=== PATIENT | female | born 1985 | race Caucasian/White ===

== ENCOUNTER 2019-03-12 12:11 | Emergency (ER) | payer SELFPAY ==
[~2019-03-12] VITALS: Ht 162.6 cm; Wt 69.8 kg
[2019-03-12] MEDS ORDERED: ZOFRAN4 MG PO (14:06)
[2019-03-12] MEDS ORDERED: VENTOLIN HFA18 GM INH (14:06)
[2019-03-12] MEDS ORDERED: BACTRIM DS TAB1 EACH PO (14:06)
--- NOTE | 2019-03-12 19:54 | EKG ---
[facility] [address] [place] [place] [address] Signed Normal sinus rhythm Septal infarct , age undetermined Abnormal ECG No previous ECGs available Confirmed by KARSTEN GARAY MD ([id number] on 03/12/2019 7:54:53 PM Electronically Signed By: KARSTEN GARAY MD 03/12/191953 PATIENT NAME: TYREE STROUD Electrocardiogram DATE OF : 85 PHYSICIAN: KARSTEN GARAY MD REPORT #: [id number] REPORT IS CONFIDENTIAL AND NOT TO BE RELEASED WITHOUT AUTHORIZATION
== END 2019-03-12 14:38 | disposition home or self-care (01) ==
LOC: ED 12:11
DX: F41.0 Panic disorder [episodic paroxysmal anxiety] (principal); N39.0 Urinary tract infection, site not specified; Z87.891 Personal history of nicotine dependence; Z88.0 Allergy status to penicillin; Z88.5 Allergy status to narcotic agent
CPT/HCPCS: 71046; 80053; 81001; 83690; 84443; 84703; 85025; 93005; 93010; 96374; 99285-25; J1885

== ENCOUNTER 2020-02-16 21:03 | Emergency (ER) | payer OTHER ==
[~2020-02-16] VITALS: Ht 162.6 cm; Wt 56.7 kg
[~2020-02-16 21:03] MED LIST: BACTRIM DS TAB1 EACH PO; VENTOLIN HFA18 GM INH; ZOFRAN4 MG PO
== END 2020-02-16 22:14 | disposition home or self-care (01) ==
LOC: ED 21:03
DX: J06.9 Acute upper respiratory infection, unspecified (principal); Z88.0 Allergy status to penicillin; Z88.5 Allergy status to narcotic agent
CPT/HCPCS: 71046; 99283-25

== ENCOUNTER 2020-08-31 16:49 | Emergency (ER) | payer SELFPAY ==
[~2020-08-31] VITALS: Ht 162.6 cm; Wt 57.1 kg
--- OUTSIDE RECORDS SUMMARY | ~2020-08-31 | XMS | Encounter Summary ---
Demographics + + + | Address | [address] | | | [place] [address] | + + + | Home Phone | | + + + | Preferred Language | Unknown | + + + | Marital Status | Single | + + + | Cheondoism Affiliation | NON | + + + | Race | White | + + + | Ethnic Group | or | + + + Author + + + | Author | [facility] | + + + | Organization | [facility] | + + + | Address | Unknown | + + + | Phone | Unavailable | + + + Support + + +---------+ + | Name | Relationship | Address | Phone | + + +---------+ + | Sophie Ramirez | ECON | Unknown | | + + +---------+ + Care Team Providers + +------+ + | Care Wireless Sales Associate Name | Role | Phone | + +------+ + | No Pcp Per Patient | PCP | Unavailable | + +------+ + Reason for Visit +---------+ + | Reason | Comments | +---------+ + | Abscess | Breast | +---------+ + AUTH/CERT +--------+--------+ + + + + | Status | Reason | Specialty | Diagnoses / | Referred By | Referred To | | | | | Procedures | Contact | Contact | +--------+--------+ + + + + | | | | | | | +--------+--------+ + + + + Encounter Details +--------+ + + + + | Date | Type | Department | Care Team | Description | +--------+ + + + + | 08/30/ | Hospital | [facility] [address] | Brigitte Lantigua | | | 2012 - | Encounter | Yariel Galvan MD [address] | | | | | [place], [place] | [address] | | | 09/02/ | | [address] | [place], [place] | | | 2012 | | [phone] | [address] | | | | | | [phone] | | | | | | | | | | | | Monica Lam MD | | | | | | [address] | | | | | | [place], | | | | | | [place] [address] | | | | | | [phone] | | | | | | | | +--------+ + + + + Social History + + + +--------+ + | Tobacco Use | Types | Packs/Day | Years | Date | | | | | Used | | + + + +--------+ + | Former Smoker | Cigarettes | | 1 | Quit: 08/30/2012 | + + + +--------+ + + + +---------+ + | Alcohol Use | Drinks/Week | oz/Week | Comments | + + +---------+ + | No | 0 Standard drinks | 0.0 | | | | or equivalent | | | + + +---------+ + + + + | Sex Assigned at | Date Recorded | | | | + + + | Not on file | | + + + documented as of this encounter Last Filed Vital Signs + + + + + | Vital Sign | Reading | Time Taken | Comments | + + + + + | Blood Pressure | 137/85 | 09/02/2013 8:21 AM | | | | | PDT | | + + + + + | Pulse | 96 | 09/02/2013 8:21 AM | | | | | PDT | | + + + + + | Temperature | 36.3 C (97.3 F) | 09/02/2013 8:21 AM | | | | | PDT | | + + + + + | Respiratory Rate | 14 | 09/02/2013 8:21 AM | | | | | PDT | | + + + + + | Oxygen Saturation | 99% | 09/02/2013 8:21 AM | | | | | PDT | | + + + + + | Inhaled Oxygen | - | - | | | Concentration | | | | + + + + + | Weight | 50 kg (110 lb 3.7 | 08/31/2013 1:21 AM | | | | oz) | PDT | | + + + + + | Height | 165.1 cm (5' 5") | 08/31/2013 1:21 AM | | | | | PDT | | + + + + + | Body Mass Index | 18.34 | 08/31/2013 1:21 AM | | | | | PDT | | + + + + + documented in this encounter Discharge Summaries Serena Mohan NP - 09/02/2013 10:08 AM PDTFormatting of this note might be different f rom the original. [facility] DEPARTMENT OF SURGERY EMERGENCY GENERAL SURGERY Division of Trauma and Critical Care INPATIENT PROVIDER DISCHARGE SUMMARY Note Date: 09/02/2013 Admission Date: 08/30/2013 LACIE RAMIREZ, Discharge Date: 02 Sep 2013 PCP: No Pcp Per PATIENT Attending Physician: Brigitte Lantigua MD Author: SERENA MOHAN NP Diagnoses Principal Final Diagnosis: Left breast abscess / cellulitis Additional Diagnoses:Patient UTI (lower urinary tract infection) Anemia Procedures 08/31/13 I&D left breast involving muscle. Vitals on discharge: Ht 1.651 m (5' 5"), Wt 50 kg (110 lb 3.7 oz), BP 139/78, Pulse 100, Te mperature 36.5 C (97.7 F), RR 14, SpO2 100%, BMI 18.34 kg/(m^2). Brief Hospital Course Lacie Ding is a 28 y/o female transferred from [facility] with co ncerns of left breast currently treated for UTI. She was admitted and started on IV antibio tics. She was taken to the operating room for incision and debridement of abscess involving abscess to the muscle wall. She tolerated procedure without complication. The initial cult ure grew staph She has an open wound to the left chest wall She is discharged on bactrim and will follow up with with Dr. Luis Fernando Evans September 06 at 10:45. The office will need to obtain the final culture results at that time to review . PROCEDURES: 08/31/13 Incision and drainage left breast abscess Findings: Large left breast abscess, approximately 8 cm round, replacing left breast. Ultra sound revealed extension of abscess to muscle wall. Aspirated 80 mL of thick, green tinged, opaque, and purulent material from left breast. Incised with additional large amount of puru lent material from abscess cavity - approximately additional 100 mL. Outstanding labs/pathology/studies: Culture sensitivity pending at [facility] Medications: Current Discharge Medication List START taking these medications Details acetaminophen 325 mg Oral tablet Take 1-2 tablets by mouth every four hours as needed. loratadine 10 mg Oral tablet Take 1 tablet by mouth as needed (itching). Indications: URTIC ARIA Qty: 10 tablet, Refills: 0 oxyCODONE, immediate release, 5 mg Oral tablet Take 2-4 tablets by mouth every four hours a s needed for severe pain. Lock pain medication away, keeping away from children. Qty: 140 tablet, Refills: 0 trimethoprim-sulfamethoxazole (BACTRIM DS) 160-800 mg Oral tablet Take 2 tablets by mouth t wo times daily. Qty: 14 tablet, Refills: 0 Schedule the following appointment(s) when you get home Follow up with LUIS FERNANDO THORNTON MD On 09/06/2013. (10:45 a.m.) Contact information [facility] [address] [facility] [address] [place] [address] Destination: Destination: Home Condition on Discharge Good Discharging Provider: SERENA MOHAN NP Attending Physician: Brigitte Lantigua MD documented in this encounter Medications at Time of Discharge + + + +---------+ + + | Medication | Sig | Dispensed | Refills | Start | End Date | | | | | | Date | | + + + +---------+ + + | acetaminophen 325 | Take 1-2 tablets by | | 0 | 10/20 | | | mg Oral tablet | mouth every four | | | 13 | | | | hours as needed. | | | | | + + + +---------+ + + | loratadine 10 mg | Take 1 tablet by | 10 | 0 | 09/02/20 | | | Oral | mouth as needed | tablet | | 13 | | | tabletIndications: | (itching). | | | | | | urticaria | Indications: | | | | | | | URTICARIA | | | | | + + + +---------+ + + | oxyCODONE, | Take 2-4 tablets by | 140 | 0 | 09/02/20 | | | immediate release, 5 | mouth every four | tablet | | 13 | | | mg Oral tablet | hours as needed for | | | | | | | severe pain. Lock | | | | | | | pain medication | | | | | | | away, keeping away | | | | | | | from children. | | | | | + + + +---------+ + + | | Take 2 tablets by | 14 | 0 | 09/02/20 | | | trimethoprim-sulfame | mouth two times | tablet | | 13 | | | thoxazole (BACTRIM | daily. | | | | | | DS) 160-800 mg Oral | | | | | | | tablet | | | | | | + + + +---------+ + + documented as of this encounter Progress Notes Nichole Seymour, Marina - 09/02/2013 7:55 PM PDT [facility] Emergency General Surgery Inpatient Progress Note Hospital Day #3 Author: MARINA ANDERSEN MD Attending: Brigitte Lantigua MD Interval History: --Tolerating dressing changes, not interacting with nurse to learn to pack wound on her own . Subjective: --Pain: Well controlled on PO pain meds. --Nausea and vomiting: None --Diet: Regular --Flatus:+ --Ambulation: OOB without assist Objective: Last Vitals: BP 137/85 | Pulse 96 | Temp 36.3 C (97.3 F) | RR 14 | Ht 1.651 m (5' 5") | Wt 50 kg (110 lb 3.7 oz) | SpO2 99% | BMI 18.34 kg/(m^2) 24 Hour Vital Min/Max: Systolic (24hrs), Av mmHg, Min:123 mmHg, Max:139 mmHgDiastolic (24hrs), Av mmHg, M in:67 mmHg, Max:85 mmHgPulse Av Min: 92 Max: 100 Temp Av.5 C (97.7 F) Min: 36.3 C (97.3 F) Max: 36.7 C (98.1 F) Resp Av Min: 14 Max: 14 SpO2 Av.5 % Min: 97 % Max: 100 % Intake/Output Summary (Last 24 hours) at 09/02/13 0700 Last data filed at 09/02/13 0600 Gross per 24 hour Intake 630 ml Output 550 ml Net 80 ml Physical Examination: GENERAL: No acute distress, alert and oriented x 3. NEUROLOGIC: Moves all extremities spontaneously. No apparent neurologic deficits. HEENT: Grossly within normal limits. CARDIOVASCULAR: Extremities warm and well perfused. PULMONARY: Unlabored breathing on room air. ABDOMEN: Soft, NT/ND. CHEST: Packing in place. Skin necrosis at superior aspect of incision. Surrounding erythema and induration continues to decrease. EXTREMITIES: No edema, full range of motion. Chemistries: Last 72 Hours (or 3 results): Recent Labs 08/31/13 0517 NA 142 K 3.5 CL 104 BICARB 29 BUN 11 CR 0.61 GLU 64 CA 8.4* CBC with diff last 72 hours (or 3 results): Recent Labs 08/31/13 0517 09/01/13 1447 09/02/13 0624 WBC 15.71* 9.70 9.96 HB 11.4* 10.0* 10.9* HCT 36.8 32.1* 36.4 PLT 416* 368 470* Assessment: Lacie Ramirez is a 28 year old female with the following active medical issues: Breast abscess: Complex abscess, found on ultrasound to spread beneath the muscle wall of t he left chest. -Stop IV antibiotics and transition to Bactrim to cover 4+ staph culture. -Ongoing wound care needs - Arranged by ORGANIZATIONAL DEVELOPMENT DIRECTOR and clinical case manager - see discharge summary Acute pain: Transitioned to PO pain meds. UTI: Treated after 3 days antibiotics. H/o polysubstance abuse: No signs of acute withdrawal. Discharge Plan: D/C home today - see discharge summary. MARINA ANDERSEN MD EGS Embroidery Supervisor Pager: [phone] Marina Iverson Md - 1 8:02 AM PDT [facility] DEPARTMENT OF SURGERY EMERGENCY GENERAL SURGERY Division of Trauma and Critical Care Attending Physician: Brigitte Lantigua MD Progress Note Note Date: 09/01/2013 Admission Date: 08/30/2013 LACIE RAMIREZ, Hospital Day #2 INTERVAL HISTORY and SUBJECTIVE: --Wanted to leave AMA overnight, decided to stay after conversation regarding necessity of IV antibiotics --This AM, again wanted to leave AMA. After dressing change, agreed that she cannot perform wound care by herself at home. --Received urine culture from outside hospital - shows resistance to Bactrim. REVIEW OF SYSTEMS: Pain adequately controlled Flatus: NO Tolerating diet: Yes Nausea/Vomiting: None Bowel movement: NO Progressing with Physical Therapy - not indicated The remainder of the complete review of system was negative. OBJECTIVE: I have reviewed the interval history and events. I have revewed the patients medications, l abs, vitals, and other applicable data points. Please refer to Codingpeople for this information. PHYSICAL EXAM: LAST VITALS: BP 130/68 | Pulse 98 | Temp 36.8 C (98.2 F) | RR 12 | Ht 1.651 m (5' 5") | Wt 50 kg (110 lb 3.7 oz) | SpO2 98% | BMI 18.34 kg/(m^2) 24 Hour Vital Min/Max: Systolic (24hrs), Av mmHg, Min:104 mmHg, Max:132 mmHg Diastoli c (24hrs), Av mmHg, Min:67 mmHg, Max:83 mmHg GENERAL: thin, avoids eye contact NEURO: awake, alert, and oriented LUNGS: normal inspiratory effort, unlabored breathing on room air CV: extremities warm, well perfused ABDOMEN: soft, NT/ND CHEST: small amount of necrotic tissue at superior incision edge, wound has minimal drainag e. induration and swelling of surrounding tissues is markedly decreased. : good urine output Extremities: no peripheral edema Patient Active Problem List Diagnosis Breast abscess ASSESSMENT, MEDICAL DECISION MAKING AND PLAN: 28 y.o. y/o female admitted on 08/30/2013 11:1 2 PM and hospital day 2. Active medical problems as listed below: Breast abscess: Complex abscess, found on ultrasound to spread beneath the muscle wall of t he left chest. -Continue IV antibiotics (vanc, flagyl, azactam) until culture data allows narrowing of ant ibiotics, with transition to PO abx in next day. -Ongoing wound care needs - MDs changed dressing at bedside today. Wound is approximately 6 cm deep. Patient tolerated after premedication with IV pain meds. RNs will complete BID elan ssing changes going forward. -Case management researching options for wound care with transferring surgeon/location clos er to patient's home. Acute pain: Currently requires IV pain medication to tolerate dressing changes of large, op en wound. -Transition to PO pain meds as tolerated. UTI: Culture results from outside hospital show e coli >100,000 cfu/mL, resistant to bactri m. -Covered by antibiotic regimen for breast abscess. -Treatment will be complete after today's antibiotics. H/o polysubstance abuse: No signs of acute withdrawal. Discharge Plan: Home when abscess culture allows for transition to PO antibiotics and liz ent has plans for wound care. ID: Antibiotics: vanc, flagyl, azactam Expected duration - pending abscess cx results. Fluids: Not indicated Feeding: Regular diet Analgesia: PO pain meds with IV for BTP and bedside dressing changes Sedation: not indicated Thromboprophylaxis: To start tonight, POD 1 Head of bed: > 30 Ulcer prophylaxis: Not indicated Glycemic control: Well controlled - only follow on daily labs Activity/PT/OT: OOB without assist Yogurt: ABX on Probiotics: Yes Marina Andersen MD General Surgery Resident, PGY1 Pager [phone] [facility] [place] [phone] [facility] [phone] signed by Marina Andersen Md at 09/01/2013 1:25 PM PDTdocum ented in this encounter H&P Notes Monica Lam MD - 08/30/2013 11:27 PM PDTI saw and evaluated the patient. I agree with the findings and the plan of care as documented in the resident s note. MONICA LAM MD [facility] [address] [place] [phone] Emelina Shahid M D - 08/30/2013 11:27 PM PDT GENERAL SURGERY HISTORY AND PHYSICAL NOTE: Admission Date: 08/30/2013 Admitting Attending: Genaro REASON FOR ADMISSION: Transferred from [facility] for L breast abscess. HPI: Two days prior to presentation Ms. Ding noticed her L breast was red, painful, and itc juan, went to sleep and "felt like it was filling up with something". Pain is "like pressure ". Sought care at the ED the next day for 10/10 pain and swelling. Alleviating factors inclu de warm compress/warm shower. No aggrevating factors. Pain radiates to L side/axilla and rajiv k. No prior similar pain. Normally has fluid leakage from bilateral breasts, now the L breas t has "plugged up" and is no longer leaking fluid. Has a two month old who is in state custo dy, did not breast feed him. Denies injections on L side/back/breast region. ROS positive for fevers, chills, shaking, MUNSON. ROS negative SOB, dysuria, changes in bladder or bowel function. At [facility] hospital, she was febrile to 38.5, with a WBC to 16.1, recei bárbara levofloxacin 500 mg, cefazolin 2 g, vancomycin. MEDICATIONS: Patient denies any medications PAST MEDICAL HISTORY: No prior medical history PAST SURGICAL HISTORY: No prior surgical history SOCIAL HISTORY: Four other children also in state custody. History Social History Marital Status: N/A Spouse Name: N/A Number of Children: N/A Years of Education: N/A Occupational History Unemployed Social History Main Topics Smoking status: Former Smoker -- 1 years Types: Cigarettes Quit date: 08/30/2012 Smokeless tobacco: Not on file Alcohol Use: No Drug Use: Yes Special: Oral, Smoke Methamphetamine Sexually Active: Not on file Other Topics Concern Not on file Social History Narrative Lives in [place] with ex boyfriend. FAMILY HISTORY: Family History Problem Relation Diabetes Father Cancer Father Prostate Diabetes Maternal Grandmother ALLERGIES: Penicillin, anaphylaxis. Codeine, unclear reaction. ROS: Review of systems: Otherwise negative besides those mentioned in the HPI PHYSICAL EXAM: There were no vitals taken for this visit. General: Alert and oriented in NAD, comfortable in bed due to pain HEENT: atraumatic, EOMI, PERRL, oropharnynx benign, good dentition, CNII-XII grossly intact Respiratory: CTA bilaterally in posterior lung mackenzie. Cardiovascular: tachycardic, nml S1 S2, no murmurs/gallops/rubs Abdomen: Soft, NTND. L. Breast: 4x4 cm area of erythema and induration, warm, tender to palpation Extremities: Warm and well perfused LABS: (outside hospital) Notable for: WBC 16, UA+ for nitrite, WBC & bacteria IMAGING: Ultrasound of L breast our read: Focal abscess collection of fluid in L breast. ASSESSMENT: Lacie Ramirez is a 28 y.o. female who presents with a L breast abscess of 2 days du ration, an elevated WBC and fever to 38.5 as well as UTI. Transferred to [facility] from [facility] for further care. RECOMMENDATIONS: 1) Admit for IV antibiotics; vancomycin and levoquin 2) NPO after 1:30 for I&D in AM. 3) Pain control with acetaminophen, dilaudid, oxycodone The above findings and plan were discussed with Dr. Lam, who agrees. Pager [phone] [facility] Embroidery Supervisor Anesthesiology documented in this encounter Procedure Notes Other, Faculty - 09/06/2013 11:19 PM PDTAssociated Order(s): PROCEDURE NOTEElectronically s igned by Faculty Other at 09/06/2013 11:19 PM Brigitte Ott MD - 08/31/2013 10:30 AM PDTPursuant to federal medicare and medicaid regulations, I was present for the critical portions of the procedure. Brigitte Lantigua MD, FACS 3 :35 PM Brigitte Ott MD - 08/31/2013 10:30 AM PDTAssociated Order(s): PROCEDURE NO TEOperative Note Date: 08/31/2013 Attending Surgeon: Brigitte Lantigua MD Hris Analyst Surgeon: Alberta Patel MD & Marina Andersen MD Indications: Left breast abscess Procedure: Incision and drainage Anesthesia: General anesthesia EBL: 5 mL FLUIDS: 900 mL IV Crystalloid Antibiotics: Vancomycin, levaquin Drains: None Complications: None Specimen: Aspirate and swab sent for gram stain and culture Disposition: Extubated to PACU in stable condition. No intraoperative events noted. Findings: Large left breast abscess, approximately 8 cm round, replacing left breast. Ultra sound revealed extension of abscess to muscle wall. Aspirated 80 mL of thick, green tinged, opaque, and purulent material from left breast. Incised with additional large amount of puru lent material from abscess cavity - approximately additional 100 mL. Indications: Patient is a 28 y.o. Female who presents with large breast abscess, febrile to 38.5 and WBC of 16. Procedure: The patient was brought to the operating room in stable condition. She was properly identif ied, consent was correct, necessary equipment and staff were present. Patient was placed sup ine on the OR table with care taken to offload bony prominences and pressure points. Anesthe maia was then induced with IV and inhaled general anesthetic. Ultrasound examination of the l eft breast revealed a large abscess - approximately 8 cm round, filled with thick-appearing fluid which extended past the breast and involved the underlying left chest muscle wall. The left chest was then prepped and draped in a sterile fashion. A large gauge needle was used to aspirate approximately 80 mL of thick, opaque, green-tinged fluid from the breast. A curv ilinear incision was then made around the areola. An additional 100 mL of similar appearing fluid was drained from the abscess cavity. The abscess cavity was thoroughly explored for ad ditional pockets of purulent material with careful blunt dissection. A small amount of nectr otic appearing tissue was sharply debrided from the cavity. Hemostasis was achieved with ricardo ctric cautery. The cavity was irrigated three times with normal saline. At the end of the pr ocedure, an abscess cavity approximately 6 cm round was packed with kerlix gauze. Local anes thesia was injected circumferentially around the incision. An abdominal pad was placed over the incision and taped in place. The patient tolerated the procedure well. Estimated blood loss was negligible and the patie nt was sent to PACU for recovery, with anticipated transfer to the general surgery cr. Sponge and needle counts were correct times two at end of case. Please note that Dr. Lantigua was present for all critical portions of this procedure. documented in thi s encounter Consult Notes Duarte Lewis PharmD - 08/31/2013 2:05 PM PDT Pharmacy Services: Initial Vancomycin Note Assessment/Plan: - Start vancomycin 750 mg IV every 12 hours (1st dose was at approximately 0430 10/2 AM). T his regimen should provide goal trough levels of 15-20 mg/L for cellulitis and breast absces s. - Recommend waiting to order vancomycin trough level until confirmed need for prolonged cou rse of treatment - Pharmacy will continue to follow. Please page clinical pharmacist (#[phone]) or call [facility] inpatient pharmacy ([phone]) with questions. Thank you, Kyle Che Pharm.D. Pager# [phone] Subjective/Objective: Lacie Ramirez, a 28 year old female who presents with a L breast abscess, an elevat ed WBC and fever to 38.5 as well as UTI. Transferred to [facility] from [facility] (where she received 1 gram of vancomycin 08/30 @1517 and 750 mg Levofloxacin IV per ER glenda rds in paper chart) for further care being started on vancomycin for empiric coverage for ce llulitis and breast abscess with a goal vancomycin trough of 15-20 mg/L. Allergies: Codeine and Penicillin g Actual body weight: Weight: 50 kg (110 lb 3.7 oz) (08/31/13 0121) Labs: CREATININE PLASMA (LAB) (mg/dL) Date Value 08/31/2013 0.61 WHITE CELL COUNT (K/cu mm) Date Value 08/31/2013 15.71* Assessment/Plan: Added to top of note documented in this encounter Miscellaneous Notes Scan - Other, Faculty - 09/06/2013 11:19 PM PDTElectronically signed by Faculty Other at 11:19 PM PDTScan - Other, Faculty - 09/06/2013 11:19 PM PDT can - Other, Faculty - 09/06/2013 11:19 PM PDTElec tronically signed by Faculty Other at 09/06/2013 11:19 PM PDTScan Nick Garnica, Faculty - 013 11:19 PM PDT abiola Najera RN - 09/02/2013 12:46 PM PDTProblem: General Plan of Care (Adult) Goal: Individualization/Patient-Specific Goal Goals: 1. Pt will have adequate pain control this shift. 2. Pt will learn dressing change this shift Interventions: 1. Assess for pain q4 and PRN, provide pain medication and non-pharm pain control options, reassess for effectiveness. Notify provider if difficult to control 2. Educate pt on dressing change, allow pt to demonstrate, ensure pt able to do by self benjamin or to discharge Interventions that worked/didn't work:pain well controlled, pt learned and demonstrated elan ssing change My recommendations forward:continue Patient Stability:Moderately StableElectronically signed by Fabiola Alvarado RN at 12:46 PM PDTFabiola Najera RN - 09/02/2013 11:40 AM PDTReviewed dressin g changes and discharge teaching with pt. Pt demonstrated dressing change. All IVs removed. SW assisted pt to get prescriptions filled. Taxi arrived to take pt off unit. lan of Fabiola Ware R N - 09/02/2013 10:34 AM PDTProblem: General Plan of Care (Adult) Goal: Individualization/Patient-Specific Goal Goals: 1. Pt will have adequate pain control this shift. 2. Pt will learn dressing change this shift Interventions: 1. Assess for pain q4 and PRN, provide pain medication and non-pharm pain control options, reassess for effectiveness. Notify provider if difficult to control 2. Educate pt on dressing change, allow pt to demonstrate, ensure pt able to do by self benjamin or to discharge lan of Deena Childress RN - 09/02/2013 10:20 AM PDTProblem: Case Management Goals Goal: Discharge Needs Met Case Management Note Pt to DC home today. Per nursing, better participation with dressing change this morning. She has a follow-up appointment with Dr. Luis Fernando Thornton on Sep 06 at 1045 in [place] on. Rx taken to pharmacy - Bactrim to be placed on pts bill and she will pay christopher for oxyco done. Arranging transport home via cab/[employer]. Pt has clothes here. Anticipate DC by 1 130. Nishi Alexis WINE SPECIALIST Trauma Consultant Rn Pager [phone] andoff - Laney Garrido RN - 09/02/2013 2:15 AM PDTRN EGS Handoff Report Primary focus of stay: L breast abscess, elevated WBC, and UTI. 08/31: Left breast I&D, wound with packing and ABD PmHx: IVD Pertinent physical findings: Vitals: VSS Respiratory status: RA Isolation Precautions: Standard Access/fluids: PIV x 2, multiple abx Diet/GI: Reg CBGs: NA : WNL Mobility: Independent Wounds/Drains: L breast I&D, dressing change BID, pt needs dressing teaching to be able to discharge Critical labs: WBC trending down Critical meds: IV abx and pain medicine Orders to follow up on: teach dressing changes Last pain assessment/reassessment: 0.6mg IV dilaudid and 15 mg oxy for pain Psych/social issues: Five children in state custody, youngest two months old. No informatio n about this pt to be give out to child services. Pt agreed to stay, Understands importance of getting abx and dressing changes Last visit (i.e. Falls/Activity/Comfort/Environment/Toileting/Skin): Pt resting; call light in reach Anticipated or pending procedures: Discharge plan: TBD andoff - Charles Alvarado RN - 09/01/2013 4:57 PM PDTRN EGS Handoff Report Primary focus of stay: L breast abscess, elevated WBC, and UTI. 08/31: Left breast I&D, wound with packing and ABD changed once this shift d/t saturation. PmHx: IVD Pertinent physical findings: Vitals: VSS Respiratory status: RA Isolation Precautions: Standard Access/fluids: PIV x 2, multiple abx Diet/GI: Reg CBGs: NA : WNL, not using hat Mobility: Independent Wounds/Drains: L breast I&D, abd changed this am by MD, dressing change BID, pt needs dress ing teaching to be able to discharge Critical labs: WBC trending down Critical meds: IV abx and pain medicine Orders to follow up on: teach dressing changes Last pain assessment/reassessment: IV dilaudid and 15 mg oxy for pain Psych/social issues: Five children in state custody, youngest two months old. No informatio n about this pt to be give out to child services. Pt agreed to stay, Understands importance of getting abx and dressing changes Last visit (i.e. Falls/Activity/Comfort/Environment/Toileting/Skin): Pt resting; call light in reach Anticipated or pending procedures: Discharge plan: TBD valuation - Fabiola Salgado RN - 09/01/2013 4:52 PM PDTProblem: General Plan of Care (Adult) Goal: Individualization/Patient-Specific Goal Goals: 1. Pt will have adequate pain control this shift. 2. Pt will not leave AMA this shift Interventions: 1. Assess for pain q4 and PRN, provide pain medication and non-pharm pain control options, reassess for effectiveness. Notify provider if difficult to control 2. Educate pt as to reason care in the hospital is needed, facilitate social work and case management involvement, encourage pt to stay for appropriate medical care. Interventions that worked/didn't work:pain well controlled this shift, pt agreed to stay fo r appropriate medical care My recommendations forward:continue with plan of care Patient Stability:Moderately Stable lan of Care - [place] Arguetassharriet Bartholomew, [facility] - 09/01/2013 2:05 PM PDTProblem: Goals & Interventions Intervention: Substance Abuse Treatment Referral(s) Referral received from: EGS team Purpose of the Interview: Assess for A&D use and treatment referrals as well as assistance with Child Welfare involvement. Current Living Situation: The pt lives in [place]. She is vague about her support system. She has a friend who she believes can help her at home when she discharges. The pt has five children ages 13, 10, 8, 4 and 2 months. All of her children are in Child Protective Servic e placements. The pt has been in touch with her collective bargaining specialist but does not want [facility] communicat ing with them. Financial/ Insurance status/ Employment: The pt thought she had Medicaid because of her rec ent but per F&MS, she is not currently enrolled. Medical issues: The pt has a breast abscess PCP: No PCP Mental health history: None disclosed Substance use History: The pt has a hx of methamphetamine use. She states she has not been using in a long time. She does regular UDS with Child Protective Services as a condition of being able to have visitations with her children. The pt states she thinks [facility] made the assumption she was positive for meth but did not actually test her. She feels the hospital has decided she is a drug user and don't trust that she has been gonzalez n. Patient s understanding of Illness/ reason for hospitalization: The pt understands the se riousness of her infection and the importance of her antibiotics Patient s post hospital care plan: The pt will go back home to [place] and will likely need to do her own dressing changes. Case Management is looking into savanah dressing change s and follow-up. Recommendations/Plans/Referrals: The pt's Child Protective Drink Box MechanicCelia called to speak with Damien. Damien explained that the pt does not want any information shared. Becka garcia asks Damien to tell the pt the following two pieces of information are important to know so that she can visit her children: When will she be released? Does she have an infection that could be contagious to her children? Damien will meet with the pt tomorrow and determine if she would like Damien to release this inform ation to Celia. rCys Ledesma LCSW Trauma & EGS Grit Blaster Pager [phone] lan of Care - Fabiola Alvarado RN - 09/01/2013 11:43 AM PDTProblem: General Plan of Care (Adult) Goal: Individualization/Patient-Specific Goal Goals: 1. Pt will have adequate pain control this shift. 2. Pt will not leave AMA this shift Interventions: 1. Assess for pain q4 and PRN, provide pain medication and non-pharm pain control options, reassess for effectiveness. Notify provider if difficult to control 2. Educate pt as to reason care in the hospital is needed, facilitate social work and case management involvement, encourage pt to stay for appropriate medical care. lan of Care - James De La Cruz rd - 09/01/2013 8:27 AM PDTProblem: Case Management Goals Goal: Discharge Needs Met Outcome: Goal not met Per team, abscess was discovered to be deeper than initially thought once it was explored i n the OR. It reaches muscle. Cultures sent but results are not back yet. Barriers to DC i nclude pain control, ability to perform self care with dressing changes, and identification of proper abx course in setting of no funding and hx of poor self-care. If possible, please consider abx on the [employer] or [employer] $4 list: http://www.[employer]/generic/Pages/default.aspx http://www.Altia.SchoolMint/cp/3250010?[email or web address] criptions Pt has asked RN about tx back to [facility] for treatment. This does not seem like a feasible goal in light of pt's lack of funding, and would not promote continuity of care. Will discuss with her. Following for CM needs. James Cr RN, BSN Consultant Rn - Trauma Program [facility] [address] [place] [phone] [email or web address] andoff - Ramya Garrido RN - 09/01/2013 12:55 AM PDTRN EGS Handoff Report Primary focus of stay: L breast abscess, elevated WBC, and UTI. 08/31: Left breast I&D, wound with packing and ABD changed once this shift d/t saturation. MD's will change dressing including packing for the "first" time this am PmHx: IVD Pertinent physical findings: Vitals: VSS, except tachycardia in the 110's Respiratory status: RA Isolation Precautions: Standard Access/fluids: PIV x 1 SL Diet/GI: Reg CBGs: NA : WNL Mobility: Independent Wounds/Drains: L breast I&D, abd changed d/t saturation, MD's will change dressing packing in the am Critical labs: WBC 15 Critical meds: IV abx and pain medicine Orders to follow up on: Encourage pt to stay for abx tx Last pain assessment/reassessment: 0.5mg IV dilaudid at 0600 and 10mg oxycodone at 0500 Psych/social issues: Five children in state custody, youngest two months old. No informatio n about this pt to be give out to anyone Last visit (i.e. Falls/Activity/Comfort/Environment/Toileting/Skin): Pt resting; call light in reach; encourage pt to stay in hospital to receive abx tx course Anticipated or pending procedures: 2nd PIV for incompatibility of abx if pt stays Discharge plan: TBD andoff - Kecia Mullins RN - 08/31/2013 6:58 PM PDTRN EGS Handoff Report Primary focus of stay: L breast abscess, elevated WBC, and UTI. 08/31: Left breast I&D, wound with packing and ABD changed once this shift d/t saturation. MD's will change dressing including packing for the "first" time in am PmHx: IVD Pertinent physical findings: Vitals: VSS, except tachycardia in the 110's Respiratory status: RA Isolation Precautions: Standard Access/fluids: PIV x2 SL Diet/GI: Reg CBGs: NA : WNL Mobility: Independent Wounds/Drains: L breast I&D, abd changed d/t saturation, MD's will change dressing packing in the am Critical labs: WBC 15 Critical meds: IV abx and pain medicine Orders to follow up on: Encourage pt to stay for abx tx Last pain assessment/reassessment: 0.5mg IV dilaudid given approx 1840 Psych/social issues: Five children in state custody, youngest two months old. No informatio n about this pt to be give out to anyone Last visit (i.e. Falls/Activity/Comfort/Environment/Toileting/Skin): 0700, bedside report, encourage pt to stay in hospital to receive abx tx course Anticipated or pending procedures: Discharge plan: TBD andoff - Jaya, Radhika Dolan RN - 08/31/2013 11:02 AM PDTMeernesto Phase I Discharge Criteria (Stable For Transfer): Yes Major deviations/events or pertinent findings of pia-operative stay: Left breast wound wit h packing and ABD pad-small amount of serosanguinous drainage through ABD pad-reinforced. PI V right AC. Pt alert, oriented x 4, pain tolerable. Anticipated post-op needs/devices/follow up: ABD is expected to saturate: ok to change or r einforce as needed. Packing to be changed twice daily; first change will be done by EGS team on AM rounds 09/01/13. Pain management, monitor surgical site, maintain IV access Post-Op Diagnosis Codes: * Left breast abscess [611.0] Surgical Procedure Planned - Actual Procedure Performed: Procedure(s) with comments: INCISION & DRAINAGE BREAST - INCISION & DRAINAGE LEFT BREAST Microbiology x 2 Anesthesia: General Length of procedure: In Room/Out of Room: 1 Hr 22 Min 30 Sec Surgeon(s) and Role: * Brigitte Lantigua MD - Primary OR positioning comments: supine Neuro: POSS Sedation Level: Frequently Drowsy, Arousable, Drifts Off to Sleep during Conve rsation Last pain medication given: Pain medication totals: Additional pain medication information: n/a Functional Epidural: N/A LEAD SOFTWARE ENGINEER: N/A Respiratory: RR: 16, O2 Sat: 100 %, O2 Delivery: None (room air) Breath Sounds: WDL FOSTER: LLL: RUL: RLL: SHASHI No Comment: Cardiac: BP: 104/69 mmHg HR: 97 GI: Nausea/Vomiting Status: No Signs/Symptoms: Interventions: Assessment: Comments: denies nausea : Last void: last void pre-op, no void in pacu Contact Name: no one per pt Contact Number: Family contacted: No Comment:Mother's number available to call if any issues, pt does not w ant her to be called at this time Belongings:no belongings in pacu lan of Care - In James roman - 08/31/2013 7:26 AM PDTProblem: Case Management Goals Goal: Discharge Needs Met Outcome: Goal not met Initial Case Management Note Reason for admission: Breast abscess. Tx from [place]. Pre-admission living situation: [place] Pre-admission functional status: Independent. Family/support system: Ex-boyfriend per report. Also has 2-mo old in state custody. Insurance/funding in place: Unknown Anticipated case management needs: Unknown - will follow for CM needs. James Cr RN, BSN Consultant Rn [place] [address] /[email or web address] Cramer - 08/30/2013 2:37 PM PDTGRP 18 Paged.Electronically signed by Jagjit granados 08/30/2013 2:37 PM PDTComFormerly [facility] Jagjit Fischer - 08/30/2013 2:20 PM [id number] Mu ltiple layers of abscess in breast. Meth user. Allergic to penicillin. UTI. Given levoquin Connected to Dr. Brigitte Lantigua BP 140/98 HR 115 CBG 82 White Count: 61 Dr. Lantigua accepts pt. req 10A bed. documented in this en counter Plan of Treatment + +------+--------+ + + | Name | Type | Priori | Associated Diagnoses | Order Schedule | | | | ty | | | + +------+--------+ + + | CULTURE, BODY FLUID | Lab | Urgent | | Collect Now for 1 | | | | | | Occurrences starting | | | | | | 08/31/2013 until | | | | | | 08/31/2013 | + +------+--------+ + + documented as of this encounter Procedures + +--------+ + + + | Procedure Name | Priori | Date/Time | Associated Diagnosis | Comments | | | ty | | | | + +--------+ + + + | PROCEDURE NOTE | Routin | 01/03/2016 | | Results for this | | | e | 9:15 PM | | procedure are in the | | | | PST | | results section. | + +--------+ + + + | PROCEDURE NOTE | Routin | 01/03/2016 | | Results for this | | | e | 9:12 PM | | procedure are in the | | | | PST | | results section. | + +--------+ + + + | CBC (HEMOGRAM) ONLY | Routin | 09/02/2013 | | Results for this | | | e | 6:24 AM | | procedure are in the | | | | PDT | | results section. | + +--------+ + + + | CBC ONLY | Routin | 09/02/2013 | | Results for this | | | e | 6:24 AM | | procedure are in the | | | | PDT | | results section. | + +--------+ + + + | CBC (HEMOGRAM) ONLY | Routin | 09/01/2013 | | Results for this | | | e | 2:47 PM | | procedure are in the | | | | PDT | | results section. | + +--------+ + + + | CBC ONLY | Routin | 09/01/2013 | | Results for this | | | e | 2:47 PM | | procedure are in the | | | | PDT | | results section. | + +--------+ + + + | CULTURE, WOUND | Urgent | 08/31/2013 | | Results for this | | ABSCESS OR ASPIRATE | | 10:40 AM | | procedure are in the | | W/ ANAEROBE | | PDT | | results section. | + +--------+ + + + | CULTURE, WOUND DEEP | Urgent | 08/31/2013 | | Results for this | | W/ ANAEROBE | | 10:40 AM | | procedure are in the | | | | PDT | | results section. | + +--------+ + + + | INCISION & DRAINAGE | Electi | 08/31/2013 | Left breast | | | BREAST | ve | 9:03 AM | abscess | | | | Surgic | PDT | | | | | al | | | | + +--------+ + + + | 12 LEAD ECG | Routin | 08/31/2013 | | Results for this | | | e | 8:36 AM | | procedure are in the | | | | PDT | | results section. | + +--------+ + + + | CBC (HEMOGRAM) ONLY | Routin | 08/31/2013 | | Results for this | | | e | 5:17 AM | | procedure are in the | | | | PDT | | results section. | + +--------+ + + + | BASIC METABOLIC SET | Routin | 08/31/2013 | | Results for this | | (NA, K, CL, TCO2, | e | 5:17 AM | | procedure are in the | | BUN, CR, GLU, CA) | | PDT | | results section. | + +--------+ + + + | CBC ONLY | Routin | 08/31/2013 | | Results for this | | | e | 5:17 AM | | procedure are in the | | | | PDT | | results section. | + +--------+ + + + documented in this encounter Results PROCEDURE NOTE (01/03/2016 9:15 PM PST)PROCEDURE NOTE (01/03/2016 9:12 PM PST) + + | Transcriptions | + + | Other, Faculty - 09/06/2013 11:19 PM PDT | + + CBC (HEMOGRAM) ONLY (09/02/2013 6:24 AM PDT) + + + + + + | Component | Value | Ref Range | Performed | Pathologist | | | | | At | Signature | + + + + + + | WHITE CELL | 9.96 | 4.40 - 11.00 | [facility] | | | COUNT | | K/cu mm | LABORATORY | | | | | | SERVICES, | | | | | | CORE | | + + + + + + | RED CELL | 4.14 | 4.00 - 5.20 | [facility] | | | COUNT | | M/cu mm | LABORATORY | | | | | | SERVICES, | | | | | | CORE | | + + + + + + | HEMOGLOBIN | 10.9 (L) | 12.0 - 16.0 | [facility] | | | | | g/dL | LABORATORY | | | | | | SERVICES, | | | | | | CORE | | + + + + + + | HEMATOCRIT | 36.4 | 36.0 - 46.0 % | [facility] | | | | | | LABORATORY | | | | | | SERVICES, | | | | | | CORE | | + + + + + + | MCV | 87.9 | 80.0 - 96.0 fL | [facility] | | | | | | LABORATORY | | | | | | SERVICES, | | | | | | CORE | | + + + + + + | MCHC | 29.9 (L) | 33.0 - 35.5 | [facility] | | | | | g/dL | LABORATORY | | | | | | SERVICES, | | | | | | CORE | | + + + + + + | RDW SD | 47.3 (H) | 35.1 - 46.3 fL | [facility] | | | | | | LABORATORY | | | | | | SERVICES, | | | | | | CORE | | + + + + + + | PLATELET | 470 (H) | 150 - 400 K/cu | [facility] | | | COUNT | | mm | LABORATORY | | | | | | SERVICES, | | | | | | CORE | | + + + + + + | MPV | 9.1 (L) | 9.7 - 12.3 fL | [facility] | | | | | | LABORATORY | | | | | | SERVICES, | | | | | | CORE | | + + + + + + | NRBC% | 0.0 | 0.0 - 0.3 % | [facility] | | | | | | LABORATORY | | | | | | SERVICES, | | | | | | CORE | | + + + + + + | NRBC# | 0.00 | 0.00 - 0.02 | [facility] | | | | | K/cu mm | LABORATORY | | | | | | SERVICES, | | | | | | CORE | | + + + + + + + + | Specimen | + + | Blood - Blood | + + + + + | Narrative | Performed At | + + + | New methodology and reference ranges for some CBC/Differential | [facility] | | analytes in effect on 06/17/13. | LABORATORY | | | SERVICES, CORE | + + + + + + + + | Performing | Address | City/State/Zipcode | Phone Number | | Organization | | | | + + + + + | [facility] | [address] | [place] [address] | | | SERVICES, CORE | [address] | | | + + + + + CBC (HEMOGRAM) ONLY (09/01/2013 2:47 PM PDT) + + + + + + | Component | Value | Ref Range | Performed | Pathologist | | | | | At | Signature | + + + + + + | WHITE CELL | 9.70 | 4.40 - 11.00 | [facility] | | | COUNT | | K/cu mm | LABORATORY | | | | | | SERVICES, | | | | | | CORE | | + + + + + + | RED CELL | 3.69 (L) | 4.00 - 5.20 | [facility] | | | COUNT | | M/cu mm | LABORATORY | | | | | | SERVICES, | | | | | | CORE | | + + + + + + | HEMOGLOBIN | 10.0 (L) | 12.0 - 16.0 | [facility] | | | | | g/dL | LABORATORY | | | | | | SERVICES, | | | | | | CORE | | + + + + + + | HEMATOCRIT | 32.1 (L) | 36.0 - 46.0 % | [facility] | | | | | | LABORATORY | | | | | | SERVICES, | | | | | | CORE | | + + + + + + | MCV | 87.0 | 80.0 - 96.0 fL | [facility] | | | | | | LABORATORY | | | | | | SERVICES, | | | | | | CORE | | + + + + + + | MCHC | 31.2 (L) | 33.0 - 35.5 | [facility] | | | | | g/dL | LABORATORY | | | | | | SERVICES, | | | | | | CORE | | + + + + + + | RDW SD | 45.3 | 35.1 - 46.3 fL | [facility] | | | | | | LABORATORY | | | | | | SERVICES, | | | | | | CORE | | + + + + + + | PLATELET | 368 | 150 - 400 K/cu | [facility] | | | COUNT | | mm | LABORATORY | | | | | | SERVICES, | | | | | | CORE | | + + + + + + | MPV | 9.6 (L) | 9.7 - 12.3 fL | [facility] | | | | | | LABORATORY | | | | | | SERVICES, | | | | | | CORE | | + + + + + + | NRBC% | 0.0 | 0.0 - 0.3 % | [facility] | | | | | | LABORATORY | | | | | | SERVICES, | | | | | | CORE | | + + + + + + | NRBC# | 0.00 | 0.00 - 0.02 | [facility] | | | | | K/cu mm | LABORATORY | | | | | | SERVICES, | | | | | | CORE | | + + + + + + + + | Specimen | + + | Blood - Blood | + + + + + | Narrative | Performed At | + + + | New methodology and reference ranges for some CBC/Differential | [facility] | | analytes in effect on 06/17/13. | LABORATORY | | | SERVICES, CORE | + + + + + + + + | Performing | Address | City/State/Zipcode | Phone Number | | Organization | | | | + + + + + | [facility] | [address] | [place] [address] | | | SERVICES, CORE | [address] | | | + + + + + CULTURE, WOUND DEEP W/ ANAEROBE (08/31/2013 10:40 AM PDT) + + + + + + | Component | Value | Ref Range | Performed | Pathologist | | | | | At | Signature | + + + + + + | SPECIMEN | Swab | | [facility] - | | | TYPE | | | [facility] - | | | | | | [place] | | + + + + + + | SOURCE BODY | Breast - left | | [facility] - | | | SITE | | | [facility] - | | | | | | [place] | | + + + + + + | CULTURE | C Wound DeepSource: | | [facility] - | | | RESULT | Breast - left | | [facility] - | | | | Final | | [place] | | | | GRAM STAIN:No squamous | | | | | | epithelial cells | | | | | | Moderate | | | | | | polymorphonuclear cells | | | | | | Many Gram positive cocci | | | | | | in clusters CULTURE | | | | | | RESULT:3+ Methicillin | | | | | | Resistant Staphylococcus | | | | | | aureus Presumptive | | | | | | identification Refer to | | | | | | culture collected | | | | | | 08/31/13 at 10:40 for | | | | | | complete identification | | | | | | and susceptibilities No | | | | | | anaerobic organisms | | | | | | isolated. | | | | + + + + + + + + | Specimen | + + | Swab - Breast - left | + + + + + + + | Performing | Address | City/State/Zipcode | Phone Number | | Organization | | | | + + + + + | [facility] - | [address] | [place] [address] | | | [place] | | | | + + + + + CULTURE, WOUND ABSCESS OR ASPIRATE W/ ANAEROBE (08/31/2013 10:40 AM PDT) + + + + + + | Component | Value | Ref Range | Performed | Pathologist | | | | | At | Signature | + + + + + + | SPECIMEN | Abscess | | [facility] | | | TYPE | | | [facility] - | | | | | | [place] | | + + + + + + | SOURCE BODY | Breast - left | | [facility] - | | | SITE | | | [facility] - | | | | | | [place] | | + + + + + + | CULTURE | C Abscess/Asp, | | [facility] - | | | RESULT | Aer/AnaSource: Breast - | | [facility] - | | | | left | | [place] | | | | Final GRAM | | | | | | STAIN:No squamous | | | | | | epithelial cells | | | | | | Moderate | | | | | | polymorphonuclear cells | | | | | | Many Gram positive cocci | | | | | | in clusters CULTURE | | | | | | RESULT:4+ Methicillin | | | | | | Resistant Staphylococcus | | | | | | aureus No anaerobic | | | | | | organisms isolated. | | | | | | ORGANISM:..............M | | | | | | ethicillin Resistant | | | | | | Staphylococcus | | | | | | aureusCefazolin | | | | | | RClindamycin | | | | | | | | | | | | SErythromycin | | | | | | ROxacillin | | | | | | | | | | | | RPenicillin | | | | | | | | | | | | RTrimethoprim/Sulfa | | | | | | STetracycline | | | | | | SVancomycin | | | | | | S | | | | + + + + + + + + | Specimen | + + | Abscess - Breast - | | left | + + + + + + + | Performing | Address | City/State/Zipcode | Phone Number | | Organization | | | | + + + + + | [facility] - | [address] | [place] [address] | | | [place] | | | | + + + + + 12 LEAD ECG (08/31/2013 8:36 AM PDT) + + + + + + | Component | Value | Ref Range | Performed | Pathologist | | | | | At | Signature | + + + + + + | VENTRICULAR | 111 | BPM | [facility] | | | RATE | | | OF | | | | | | CARDIOLOGY | | + + + + + + | ATRIAL RATE | 111 | BPM | [facility] | | | | | | OF | | | | | | CARDIOLOGY | | + + + + + + | P-R | 133 | ms | [facility] | | | INTERVAL | | | OF | | | | | | CARDIOLOGY | | + + + + + + | QRS | 76 | ms | [facility] | | | DURATION | | | OF | | | | | | CARDIOLOGY | | + + + + + + | QT | 311 | ms | [facility] | | | | | | OF | | | | | | CARDIOLOGY | | + + + + + + | QTC | 423 | ms | [facility] | | | | | | OF | | | | | | CARDIOLOGY | | + + + + + + | P AXIS | 70 | degrees | [facility] | | | | | | OF | | | | | | CARDIOLOGY | | + + + + + + | R AXIS | 42 | degrees | [facility] | | | | | | OF | | | | | | CARDIOLOGY | | + + + + + + | T AXIS | 43 | degrees | [facility] | | | | | | OF | | | | | | CARDIOLOGY | | + + + + + + | EKG | Sinus | | [facility] | | | DIAGNOSIS | tachycardiaOtherwise | | OF | | | | normal ECG"I have | | CARDIOLOGY | | | | personally interpreted | | | | | | this report, either | | | | | | alone or with a | | | | | | trainee."Confirmed by | | | | | | CHRIS KELLER ([id number]) | | | | | | on 08/31/2013 6:19:42 PM | | | | + + + + + + + + | Specimen | + + | | + + + + + | Narrative | Performed At | + + + | Please click | [facility] OF | | on view image for the detailed interpretation from [employer] results. | CARDIOLOGY | + + + + + | Procedure Note | + + | Interface, Cardiology Results - 08/31/2013 6:19 PM PDT Please click on view image | | for the detailed interpretation from [employer] results. | + + + + + + + | Performing | Address | City/State/Zipcode | Phone Number | | Organization | | | | + + + + + | [facility] | [address] | [place], [place] | | | CARDIOLOGY | [address] | [phone] | | + + + + + CBC (HEMOGRAM) ONLY (08/31/2013 5:17 AM PDT) + + + + + + | Component | Value | Ref Range | Performed | Pathologist | | | | | At | Signature | + + + + + + | WHITE CELL | 15.71 (H) | 4.40 - 11.00 | [facility] | | | COUNT | | K/cu mm | LABORATORY | | | | | | SERVICES, | | | | | | CORE | | + + + + + + | RED CELL | 4.24 | 4.00 - 5.20 | [facility] | | | COUNT | | M/cu mm | LABORATORY | | | | | | SERVICES, | | | | | | CORE | | + + + + + + | HEMOGLOBIN | 11.4 (L) | 12.0 - 16.0 | [facility] | | | | | g/dL | LABORATORY | | | | | | SERVICES, | | | | | | CORE | | + + + + + + | HEMATOCRIT | 36.8 | 36.0 - 46.0 % | [facility] | | | | | | LABORATORY | | | | | | SERVICES, | | | | | | CORE | | + + + + + + | MCV | 86.8 | 80.0 - 96.0 fL | [facility] | | | | | | LABORATORY | | | | | | SERVICES, | | | | | | CORE | | + + + + + + | MCHC | 31.0 (L) | 33.0 - 35.5 | [facility] | | | | | g/dL | LABORATORY | | | | | | SERVICES, | | | | | | CORE | | + + + + + + | RDW SD | 45.3 | 35.1 - 46.3 fL | [facility] | | | | | | LABORATORY | | | | | | SERVICES, | | | | | | CORE | | + + + + + + | PLATELET | 416 (H) | 150 - 400 K/cu | [facility] | | | COUNT | | mm | LABORATORY | | | | | | SERVICES, | | | | | | CORE | | + + + + + + | MPV | 9.5 (L) | 9.7 - 12.3 fL | [facility] | | | | | | LABORATORY | | | | | | SERVICES, | | | | | | CORE | | + + + + + + | NRBC% | 0.0 | 0.0 - 0.3 % | [facility] | | | | | | LABORATORY | | | | | | SERVICES, | | | | | | CORE | | + + + + + + | NRBC# | 0.00 | 0.00 - 0.02 | [facility] | | | | | K/cu mm | LABORATORY | | | | | | SERVICES, | | | | | | CORE | | + + + + + + + + | Specimen | + + | Blood - Blood | + + + + + | Narrative | Performed At | + + + | New methodology and reference ranges for some CBC/Differential | [facility] | | analytes in effect on 06/17/13. | LABORATORY | | | [facility] | + + + + + + + + | Performing | Address | City/State/Zipcode | Phone Number | | Organization | | | | + + + + + | [facility] | [address] | [place] [address] | | | SERVICES, [place] | [address] | | | + + + + + BASIC METABOLIC SET (NA, K, CL, TCO2, BUN, CR, GLU, CA) (08/31/2013 5:17 AM PDT) + +---------+ + + + | Component | Value | Ref Range | Performed | Pathologist | | | | | At | Signature | + +---------+ + + + | GLUCOSE, | 64 | 60 - 99 mg/dL | [facility] | | | PLASMA | | | LABORATORY | | | (LAB) | | | SERVICES, | | | | | | CORE | | + +---------+ + + + | BUN, PLASMA | 11 | 6 - 20 mg/dL | [facility] | | | (LAB) | | | LABORATORY | | | | | | SERVICES, | | | | | | CORE | | + +---------+ + + + | CREATININE | 0.61 | 0.60 - 1.10 | [facility] | | | PLASMA | | mg/dL | LABORATORY | | | (LAB) | | | SERVICES, | | | | | | CORE | | + +---------+ + + + | EGFR | >60 | >60 mL/min | [facility] | | | - | | | LABORATORY | | | STATELESS | | | SERVICES, | | | | | | CORE | | + +---------+ + + + | EGFR NON | >60 | >60 mL/min | [facility] | | | -[facility] | | | LABORATORY | | | RICAN | | | SERVICES, | | | | | | CORE | | + +---------+ + + + | SODIUM, | 142 | 136 - 145 | [facility] | | | PLASMA | | mmol/L | LABORATORY | | | (LAB) | | | SERVICES, | | | | | | CORE | | + +---------+ + + + | POTASSIUM, | 3.5 | 3.4 - 5.0 | [facility] | | | PLASMA | | mmol/L | LABORATORY | | | (LAB) | | | SERVICES, | | | | | | CORE | | + +---------+ + + + | CHLORIDE, | 104 | 97 - 108 mmol/L | [facility] | | | PLASMA | | | LABORATORY | | | (LAB) | | | SERVICES, | | | | | | CORE | | + +---------+ + + + | TOTAL CO2, | 29 | 21 - 32 mmol/L | [facility] | | | PLASMA | | | LABORATORY | | | (LAB) | | | SERVICES, | | | | | | CORE | | + +---------+ + + + | CALCIUM, | 8.4 (L) | 8.6 - 10.2 | [facility] | | | PLASMA | | mg/dL | LABORATORY | | | (LAB) | | | SERVICES, | | | | | | CORE | | + +---------+ + + + | ANION GAP | 9 | mmol/L | [facility] | | | | | | LABORATORY | | | | | | SERVICES, | | | | | | CORE | | + +---------+ + + + | POTASSIUM | No Hemo | | [facility] | | | CMNT | | | LABORATORY | | | | | | SERVICES, | | | | | | CORE | | + +---------+ + + + + + | Specimen | + + | Blood - Blood | + + + + + | Narrative | Performed At | + + + | GFR is estimated using the MDRD equation recommended by the | [facility] | | National Kidney Disease Education Program. Estimated GFR | LABORATORY | | Interpretive Information: <60 mL/min/1.73 sq m | SERVICES, CORE | | Chronic Kidney Disease <15 mL/min/1.73 sq m | | | Kidney Failure Estimated GFR greater that 60 mL/min/1.73 sq m is of | | | limited clinical value. The MDRD equation is not valid in the | | | following situations: - Patients under 18 years of age - Severe | | | malnutrition or obesity - Vegetarian diet - Rapidly changing kidney | | | function | | + + + + + + + + | Performing | Address | City/State/Zipcode | Phone Number | | Organization | | | | + + + + + | [facility] | [address] | [place] [address] | | | SERVICES, CORE | [address] | | | + + + + + documented in this encounter Visit Diagnoses + + | Diagnosis | + + | Breast abscess - Primary Inflammatory disease of breast | + + | UTI (lower urinary tract infection) Urinary tract infection, site not specified | + + | 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, unspecified | + + | Anemia Anemia, unspecified | + + documented in this encounter Administered Medications + +--------+ +--------+------+------+ | Medication Order | MAR | Action | Dose | Rate | Site | | | Action | Date | | | | + +--------+ +--------+------+------+ | acetaminophen (TYLENOL) tablet | Given | 09/01/20 | 650 mg | | | | 325-650 mg 325-650 mg, oral, | | 13 2:54 | | | | | EVERY 4 HOURS NEEDED, Starting | | PM PDT | | | | | 08/31/13 at 1010, Until Fri | | | | | | | 09/02/13 at 1732, mild pain | | | | | | + +--------+ +--------+------+------+ +-------+ +--------+---+---+ | Given | 08/31/20 | 650 mg | | | | | 13 2:16 | | | | | | PM PDT | | | | +-------+ +--------+---+---+ +---+---+ | | | +---+---+ + +---------+ +-----+---+---+ | aztreonam (AZACTAM) IV 2 g 2 | New Bag | 09/01/20 | 2 g | | | | g, intravenous, EVERY 8 HOURS, 4 | | 13 3:29 | | | | | doses, First dose on Thu08/31/13 | | PM PDT | | | | | at 1600, Last dose on Thu09/01/13 | | | | | | | at 1600 | | | | | | + +---------+ +-----+---+---+ +---------+ +-----+---+---+ | New Bag | 09/01/20 | 2 g | | | | | 13 8:10 | | | | | | AM PDT | | | | +---------+ +-----+---+---+ | New Bag | 08/31/20 | 2 g | | | | | 13 11:50 | | | | | | PM PDT | | | | +---------+ +-----+---+---+ +---+---+ | | | +---+---+ + +-------+ +-------+---+---+ | enoxaparin (LOVENOX) injection | Given | 09/01/20 | 40 mg | | | | 40 mg 40 mg, subcutaneous, EVERY | | 13 9:20 | | | | | EVENING, First dose on Hemalatha | | PM PDT | | | | | 09/01/13 at 2100, Until | | | | | | | Discontinued | | | | | | + +-------+ +-------+---+---+ +---+---+ | | | +---+---+ + +---------+ +--------+---+---+ | HYDROmorphone (DILAUDID) | New Bag | 08/31/20 | 0.3 mg | | | | injection 0.2-0.6 mg 0.2-0.6 mg, | | 13 8:38 | | | | | intravenous, EVERY 2 HOURS | | AM PDT | | | | | NEEDED, Starting Thu08/31/13 at | | | | | | | 0011, Until Thu08/31/13 at 1011, | | | | | | | moderate pain | | | | | | + +---------+ +--------+---+---+ +---------+ +--------+---+---+ | New Bag | 08/31/20 | 0.3 mg | | | | | 13 8:28 | | | | | | AM PDT | | | | +---------+ +--------+---+---+ | New Bag | 08/31/20 | 0.3 mg | | | | | 13 2:26 | | | | | | AM PDT | | | | +---------+ +--------+---+---+ +---+---+ | | | +---+---+ + +---------+ +--------+---+---+ | HYDROmorphone (DILAUDID) | New Bag | 09/02/20 | 0.6 mg | | | | injection 0.2-0.6 mg 0.2-0.6 mg, | | 13 8:35 | | | | | intravenous, EVERY 2 HOURS | | AM PDT | | | | | NEEDED, Starting Thu08/31/13 at | | | | | | | 1010, Until Thu09/02/13 at 1732, | | | | | | | for breakthrough only | | | | | | + +---------+ +--------+---+---+ +---------+ +--------+---+---+ | New Bag | 09/01/20 | 0.6 mg | | | | | 13 9:35 | | | | | | PM PDT | | | | +---------+ +--------+---+---+ | New Bag | 09/01/20 | 0.6 mg | | | | | 13 12:22 | | | | | | PM PDT | | | | +---------+ +--------+---+---+ + +---+ | | | + +---+ | HYDROmorphone (DILAUDID) | | | injection 1 dose, Starting Wed | | | 08/31/13 at 0816, Until Wed | | | 08/31/13 at 0828 | | + +---+ | | | + +---+ + + + +---+---+---+ | lactated ringers IV 75 mL/hr, | given by | 08/31/20 | | | | | intravenous, CONTINUOUS, Starting | | 13 10:35 | | | | | 08/31/13 at 0045, Until Wed | anesthes | AM PDT | | | | | 08/31/13 at 1011 | iology | | | | | + + + +---+---+---+ +---------+ + + +---+ | New Bag | 08/31/20 | | | | | | 13 8:58 | | | | | | AM PDT | | | | +---------+ + + +---+ | New Bag | 08/31/20 | 75 mL/hr | 75 mL/hr | | | | 13 12:42 | | | | | | AM PDT | | | | +---------+ + + +---+ +---+---+ | | | +---+---+ + +-------+ +---------+---+---+ | lactobacillus rhamnosus (GG) | Given | 09/02/20 | 1 | | | | (CULTURELLE) 15 billion cell | | 13 8:35 | capsule | | | | capsule 1 capsule 1 capsule, | | AM PDT | | | | | oral, DAILY, First dose on Hemalatha | | | | | | | 09/01/13 at 1515, Until | | | | | | | Discontinued | | | | | | + +-------+ +---------+---+---+ +-------+ +---------+---+---+ | Given | 09/01/20 | 1 | | | | | 13 2:54 | capsule | | | | | PM PDT | | | | +-------+ +---------+---+---+ +---+---+ | | | +---+---+ + +-------+ +-------+---+---+ | loratadine (CLARITIN) tablet 10 | Given | 08/31/20 | 10 mg | | | | mg 10 mg, oral, NEEDED, | | 13 4:49 | | | | | Starting 08/31/13 at 1640, | | PM PDT | | | | | Until 09/02/13 at 1732, | | | | | | | itching | | | | | | + +-------+ +-------+---+---+ +---+---+ | | | +---+---+ + +---------+ +--------+---+---+ | metroNIDAZOLE (FLAGYL) IV 500 | New Bag | 09/01/20 | 500 mg | | | | mg 500 mg, intravenous, EVERY 8 | | 13 10:20 | | | | | HOURS, First dose on Thu08/31/13 | | AM PDT | | | | | at 1700, Until Discontinued | | | | | | + +---------+ +--------+---+---+ +---------+ +--------+---+---+ | New Bag | 09/01/20 | 500 mg | | | | | 13 1:35 | | | | | | AM PDT | | | | +---------+ +--------+---+---+ | New Bag | 08/31/20 | 500 mg | | | | | 13 4:28 | | | | | | PM PDT | | | | +---------+ +--------+---+---+ +---+---+ | | | +---+---+ + +-------+ +-------+---+---+ | oxyCODONE (immediate release) | Given | 09/02/20 | 15 mg | | | | (ROXICODONE) tablet 10-20 mg | | 13 5:53 | | | | | 10-20 mg, oral, EVERY 4 HOURS | | AM PDT | | | | | NEEDED, Starting Thu08/31/13 at | | | | | | | 1009, Until Thu09/02/13 at 1732, | | | | | | | severe pain | | | | | | + +-------+ +-------+---+---+ +-------+ +-------+---+---+ | Given | 09/01/20 | 15 mg | | | | | 13 9:57 | | | | | | PM PDT | | | | +-------+ +-------+---+---+ | Given | 09/01/20 | 15 mg | | | | | 13 2:54 | | | | | | PM PDT | | | | +-------+ +-------+---+---+ +---+---+ | | | +---+---+ + +-------+ +-------+---+---+ | oxyCODONE (immediate release) | Given | 08/31/20 | 15 mg | | | | (ROXICODONE) tablet 5-15 mg 5-15 | | 13 7:40 | | | | | mg, oral, EVERY 3 HOURS | | AM PDT | | | | | NEEDED, Starting Thu08/31/13 at | | | | | | | 0011, Until Thu08/31/13 at 1011, | | | | | | | severe pain | | | | | | + +-------+ +-------+---+---+ +-------+ +-------+---+---+ | Given | 08/31/20 | 15 mg | | | | | 13 4:40 | | | | | | AM PDT | | | | +-------+ +-------+---+---+ | Given | 08/31/20 | 10 mg | | | | | 13 12:50 | | | | | | AM PDT | | | | +-------+ +-------+---+---+ +---+---+ | | | +---+---+ + +---------+ +--------+---+---+ | vancomycin (VANCOCIN) IV 750 mg | New Bag | 08/31/20 | 750 mg | | | | 750 mg, intravenous, EVERY 8 | | 13 4:33 | | | | | HOURS, First dose (after last | | AM PDT | | | | | reorder) on Thu08/31/13 at 0400, | | | | | | | Until Discontinued | | | | | | + +---------+ +--------+---+---+ +---+---+ | | | +---+---+ + +---------+ +--------+---+---+ | vancomycin (VANCOCIN) IV 750 mg | New Bag | 09/02/20 | 750 mg | | | | 750 mg, intravenous, EVERY 12 | | 13 4:45 | | | | | HOURS, First dose on Thu08/31/13 | | AM PDT | | | | | at 1700, Until Discontinued | | | | | | + +---------+ +--------+---+---+ +---------+ +--------+---+---+ | New Bag | 09/01/20 | 750 mg | | | | | 13 5:16 | | | | | | PM PDT | | | | +---------+ +--------+---+---+ | New Bag | 09/01/20 | 750 mg | | | | | 13 4:54 | | | | | | AM PDT | | | | +---------+ +--------+---+---+ +---+---+ | | | +---+---+ documented in this encounter
--- OUTSIDE RECORDS SUMMARY | ~2020-08-31 | XMS | Encounter Summary ---
Demographics + + + | Address | [address] | | | [place] [address] | + + + | Home Phone | | + + + | Preferred Language | Unknown | + + + | Marital Status | Single | + + + | Denominational Affiliation | NON | + + + | Race | White | + + + | Ethnic Group | or | + + + Author + + + | Author | [facility] | + + + | Organization | [facility] | + + + | Address | Unknown | + + + | Phone | Unavailable | + + + Support + + +---------+ + | Name | Relationship | Address | Phone | + + +---------+ + | Sophie Ramirez | ECON | Unknown | | + + +---------+ + Care Team Providers + +------+ + | Care Division Operations Manager Name | Role | Phone | + +------+ + | No Pcp Per Patient | PCP | Unavailable | + +------+ + Encounter Details +--------+ + + + + | Date | Type | Department | Care Team | Description | +--------+ + + + + | 09/02/ | Pharmacy | [facility] | | | | 2012 | Visit [facility] | | | | | [address] | | | | | | [place], [place] | | | | | | [address] | | | | | | [phone] | | | +--------+ + + + [...] + + documented as of this encounter Plan of Treatment Not on filedocumented as of this encounter Visit Diagnoses Not on filedocumented in this encounter Additional Health Concerns + + + + + | Infection | Onset Date | Last Indicated | Resolved Time | + + + + + | 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
--- OUTSIDE RECORDS SUMMARY | ~2020-08-31 | XMS | Encounter Summary ---
Demographics + + + | Address | [address] | | | [place] [address] | + + + | Home Phone | | + + + | Preferred Language | Unknown | + + + | Marital Status | Single | + + + | Sikhism Affiliation | Unknown | + + + | Race | White | + + + | Ethnic Group | Not or | + + + Author + + + | Author | [facility] | | | and [place] | + + + | Organization | [facility] | | | and [place] | + + + | Address | Unknown | + + + | Phone | Unavailable | + + + Support + + + + + | Name | Relationship | Address | Phone | + + + + + | Jm weems | ECON | [address] | | | | | [place], | | | | | [place] [address] | | + + + + + Care Team Providers + +------+ + | Care Maintenance Supervisor Mechanical Name | Role | Phone | + +------+ + | No, Physician | PCP | Unavailable | + +------+ + Reason for Visit + + + | Reason | Comments | + + + | Oliguria | | + + + | Emesis | | + + + | Nausea | | + + + | Generalized Body | | | Aches | | + + + Encounter Details +--------+ + + + + | Date | Type | Department | Care Team | Description | +--------+ + + + + | 03/17/ | Emergency | [facility] | Jamie Garcia MD | Nausea (Primary Dx) | | 2019 | | [facility] EM[facility] | [address] | | | | | CENTER [address] | [place] | | | | | [place] | [id number] | | | | | [address] | | | | | | [phone] | | | +--------+ + + + + Social History + +-------+ +--------+------+ | Tobacco Use | Types | Packs/Day | Years | Date | | | | | Used | | + +-------+ +--------+------+ | Never Smoker | | | | | + +-------+ +--------+------+ + +---+---+---+ | Smokeless Tobacco: | | | | | Never Used | | | | + +---+---+---+ + + +---------+ + | Alcohol Use | Drinks/Week | oz/Week | Comments | + + +---------+ + | Never | | | | + + +---------+ + + + + + | Alcohol Habits | Answer | Date Recorded | + + + + | How often do you have a drink containing | Never | 03/16/2019 | | alcohol? | | | + + + + | How many drinks containing alcohol do you | Not asked | | | have on a typical day when you are | | | | drinking? | | | + + + + | How often do you have six or more drinks on | Not asked | | | one occasion? | | | + + + + + + + | Sex Assigned at | Date Recorded | | | | + + + | Not on file | | + + + documented as of this encounter Last Filed Vital Signs + + + + + | Vital Sign | Reading | Time Taken | Comments | + + + + + | Blood Pressure | 125/79 | 03/17/2019 2:38 PM | | | | | PDT | | + + + + + | Pulse | 75 | 03/17/2019 2:37 PM | | | | | PDT | | + + + + + | Temperature | 37.1 C (98.8 F) | 03/17/2019 10:41 AM | | | | | PDT | | + + + + + | Respiratory Rate | 16 | 03/17/2019 12:20 PM | | | | | PDT | | + + + + + | Oxygen Saturation | 100% | 03/17/2019 2:37 PM | | | | | PDT | | + + + + + | Inhaled Oxygen | - | - | | | Concentration | | | | + + + + + | Weight | 68 kg (150 lb) | 03/17/2019 10:41 AM | | | | | PDT | | + + + + + | Height | 162.6 cm (5' 4") | 03/17/2019 10:41 AM | | | | | PDT | | + + + + + | Body Mass Index | 25.75 | 03/17/2019 10:41 AM | | | | | PDT | | + + + + + documented in this encounter Discharge Instructions Instructions Jamie Garcia MD - 03/17/2019Take medication as needed. [facility]. AttachmentsThe following attachments cannot be sent through Care Everywhere.Paulina Ga (Chet suarez) (Slovenian)documented in this encounter Medications at Time of Discharge + + + +---------+ + + | Medication | Sig | Dispensed | Refills | Start | End Date | | | | | | Date | | + + + +---------+ + + | ondansetron | Take 1 tablet by | 12 | 0 | 03/17/20 | | | (ZOFRAN ODT) 4 mg | mouth every 8 hours | tablet | | 19 | | | disintegrating | as needed. | | | | | | tablet | | | | | | + + + +---------+ + + documented as of this encounter ED Notes Jamie Garcia MD - 03/17/2019 10:50 AM PDTFormatting of this note might be different from t he original. Merged With [facility] Lacie Ramirez Emergency Department Encounter Note [address] [place] [id number] PCP:No Physician on file [phone] CHIEF COMPLAINT: Chief Complaint Patient presents with Oliguria Emesis Nausea Generalized Body Aches ED Room: ED10/ED10 HPI Lacie Ramirez is a 33 y.o. female who presents to the Emergency Department with nause a vomiting chills and body aches. Patient states that over the past week she has had diffic ulty keeping things down. She complains of diffuse body aches which she rates a 10 out of 1 0. She denies any fevers. Did urinate a small amount earlier today. Has not taken anythin g for the pain. Has history of emphysema. Denies any marijuana use. LMP was 1 week ago. PAST MEDICAL & SURGICAL HISTORY Past Medical History: Diagnosis Date Emphysema of lung (HCC) Hypertension History reviewed. No pertinent surgical history. CURRENT MEDICATIONS No current outpatient medications on file as of 03/17/2019. ALLERGIES Allergies Allergen Reactions Codeine Swelling Penicillins Swelling FAMILY AND SOCIAL HISTORY History reviewed. No pertinent family history. Social History Socioeconomic History Marital status: Single Spouse name: Not on file Number of children: Not on file Years of education: Not on file Highest education level: Not on file Tobacco Use Smoking status: Never Smoker Smokeless tobacco: Never Used Substance and Sexual Activity Alcohol use: Never Frequency: Never Drug use: Never REVIEW OF SYSTEMS As in history of present illness. A 10 system review was otherwise negative. PHYSICAL EXAM VITAL SIGNS: (first vital signs):Temp: 37.1 C (98.8 F) Pulse: 82 Resp: 18 SpO2: 99 % BP : 127/79 Body mass index is 25.75 kg/m. Constitutional: female patient, NAD HEENT: Atraumatic, PERRL, Oropharynx benign. Neck: Supple with full range of motion. No JVD, no lymphadenopathy, no meningismus and No Cervical Spine Tenderness to palpation or step-off noted.. Respiratory: Good air movement bilaterally. No wheezes, No, rales. Cardiovascular: Normal S1 S2 Abdomen: Mild diffuse abdominal tenderness, no rebound, no peritoneal signs Extremities: Nontender. Skin: Warm, Dry, No rashes Neurologic: Alert & oriented. Psychiatric: Normal mood, affect and judgement. EKG 12-lead EKG shows LABS Results for orders placed or performed during the hospital encounter of 03/17/19 CBC with Differential Result Value Ref Range WBC 7.1 4.0 - 11.0 K/uL RBC 4.42 3.70 - 5.20 M/uL Hemoglobin 12.3 11.5 - 16.0 g/dL Hematocrit 39.8 34.0 - 47.0 % MCV 90.0 83.0 - 101.0 fL MCH 27.8 (L) 28.0 - 35.0 pg MCHC 30.9 (L) 32.0 - 36.0 g/dL RDW-CV 13.0 <15.0 % RDW-SD 42.7 35.1 - 46.3 fL Platelet Count 374 140 - 440 K/uL MPV 9.7 6.5 - 12.4 fL % Neutrophils 64.6 45.0 - 82.0 % % Lymphocytes 25.6 20.0 - 45.0 % % Monocytes 5.8 4.0 - 12.0 % % Eosinophils 3.5 0.0 - 5.0 % % Basophils 0.4 0.0 - 1.0 % % Immature Granulocytes 0.1 0.0 - 0.4 % Absolute Neutrophils 4.57 1.80 - 8.50 K/uL Absolute Lymphocytes 1.81 0.60 - 3.20 K/uL Absolute Monocytes 0.41 0.00 - 1.00 K/uL Absolute Eosinophils 0.25 0.00 - 0.40 K/uL Absolute Basophils 0.03 0.00 - 0.10 K/uL Absolute Immature Granulocytes 0.01 0.00 - 0.03 K/uL % nRBC 0 0 - 2 per 100 WBCs Absolute nRBC 0.00 0.00 - 0.01 K/uL Comprehensive Metabolic Panel Result Value Ref Range Na 136 136 - 145 mmol/L K 4.8 3.4 - 5.1 mmol/L Cl 104 98 - 107 mmol/L CO2 25 20 - 31 mmol/L Anion Gap 7 3 - 16 mmol/L Glucose 78 60 - 106 mg/dL BUN 9 9 - 23 mg/dL Creatinine 0.85 0.55 - 1.02 mg/dL eGFR if not >60 >=60 mL/min/1.73m2 Ca 9.3 8.7 - 10.4 mg/dL Albumin 4.5 3.2 - 4.8 g/dL Bilirubin Total 0.3 0.3 - 1.2 mg/dL Total Protein 6.9 5.7 - 8.2 g/dL AST 19 0 - 34 U/L ALT 17 10 - 49 U/L Alkaline Phosphatase 77 46 - 116 U/L Globulin 2.4 2.1 - 3.8 g/dL Albumin/Globulin Ratio 1.9 0.8 - 1.9 BUN/Creatinine Ratio 10.6 Lipase Result Value Ref Range Lipase 89 (H) 12 - 53 U/L Urinalysis with Microscopic with Culture if Indicated Result Value Ref Range Color Straw Light Yellow, Yellow, Straw Clarity Clear Clear pH, Urine 5.0 5.0 - 8.0 Specific [place] 1.011 1.001 - 1.030 Protein, Urine Negative Negative Blood, Urine Negative Negative Glucose, Urine Negative Negative Ketones, Urine Negative Negative Bilirubin, Urine Negative Negative Nitrite, Urine Negative Negative Leukocyte Esterase, Urine Negative Negative Urobilinogen, Urine Negative 0.2 mg/dL, 1.0 mg/dL, Negative WBC UA 0-2 0 - 2 /HPF RBC UA 0-2 0 - 2 /HPF SQUAMOUS EPITHELIAL UA 0-2 0 - 2 /LPF BACTERIA UA Negative Negative /HPF POCT Test, Urine, QUAL Result Value Ref Range Test, Urine, POC Negative Negative Internal QC Acceptable Acceptable Specific [place], POC 1.010, 1.015, 1.020, 1.025 Lot Number [id number] Expiration Date 2020-04-09 IMAGING STUDIES (X-Rays interpreted by ED Physician) ED COURSE & MEDICAL DECISION MAKING Pertinent Labs & Imaging studies were reviewed along with EMS notes and prison record s if applicable. (See chart for details) Medications and Allergy list reviewed. Nurses note and old records were reviewed The patient was seen and examined, Patient is a 33-year-old female presents with generalized malaise and nausea and vomiting. She reports that the symptoms have been ongoing for the past week. She denies any marijuan a use. She denies any similar symptoms in the past. No recent travels. No recent sick con tacts. Lab work was obtained was reassuring. She states that she was unable to hold down a ny fluids or solids over the past week. UA was not consistent with dehydration. She had no leukocytosis. Abdominal labs are unremarkable. She was given Zofran but continued to have nausea so was given Phenergan. She was then given Toradol for pain. Reviewed lab work wit h patient. Patient then had to go to catch a bus. She was encouraged to return for any wor sening symptoms. Last Set of Vital Signs: Temp: 37.1 C (98.8 F) Pulse: 75 Resp: 16 SpO2: 100 % BP: 125/7 9 FINAL IMPRESSION ICD-10-CM ICD-9-CM 1. NauseaAcute R11.0 787.02 Follow-up Information [facility]. Specialty: Emergency Medicine Why: If symptoms worsen Contact information: [address] [place] [address] Schedule an appointment as soon as possible for a visit with No Physician on file. Contact information: P Discharge Medication List as of 03/17/2019 14:35 START taking these medications Details ondansetron (ZOFRAN ODT) 4 mg disintegrating tablet Take 1 tablet by mouth every 8 hours as needed.Disp-12 tablet, R-0, Normal Jamie Garcia MD 03/18/19 0620 Patel Handy RN - 02/28 10:42 AM PDTC/O body aches, nausea, emesis and oliguria for 1 week. Seen here yesterd ay but had to leave due to transportation issues. documented in this encounter Plan of Treatment Not on filedocumented as of this encounter Procedures + +--------+ + + + | Procedure Name | Priori | Date/Time | Associated Diagnosis | Comments | | | ty | | | | + +--------+ + + + | URINALYSIS WITH | STAT | 03/17/2019 | | Results for this | | MICROSCOPIC WITH | | 12:39 PM | | procedure are in the | | CULTURE IF INDICATED | | PDT | | results section. | + +--------+ + + + | POCT TEST, | STAT | 03/17/2019 | | Results for this | | URINE, QUAL | | 12:39 PM | | procedure are in the | | | | PDT | | results section. | + +--------+ + + + | CBC WITH | STAT | 03/17/2019 | | Results for this | | DIFFERENTIAL | | 11:44 AM | | procedure are in the | | | | PDT | | results section. | + +--------+ + + + | LIPASE | STAT | 03/17/2019 | | Results for this | | | | 11:44 AM | | procedure are in the | | | | PDT | | results section. | + +--------+ + + + | COMPREHENSIVE | STAT | 03/17/2019 | | Results for this | | METABOLIC PANEL | | 11:44 AM | | procedure are in the | | | | PDT | | results section. | + +--------+ + + + documented in this encounter Results POCT Test, Urine, QUAL (03/17/2019 12:39 PM PDT) + + + + + + | Component | Value | Ref Range | Performed | Pathologist | | | | | At | Signature | + + + + + + | | Negative | Negative | | | | Test, | | | | | | Urine, POC | | | | | + + + + + + | Internal QC | Acceptable | Acceptable | | | + + + + + + | Specific | | 1.010, 1.015, | | | | [place], | | 1.020, 1.025 | | | | POC | | | | | + + + + + + | Lot Number | [id number] | | | | + + + + + + | Expiration | 2020-04-09 | | | | | Date | | | | | + + + + + + + + | Specimen | + + | Urine | + + Urinalysis with Microscopic with Culture if Indicated (03/17/2019 12:39 PM PDT) + + + + + + | Component | Value | Ref Range | Performed | Pathologist | | | | | At | Signature | + + + + + + | Color, | Straw | Light Yellow, | [facility] | | | Urine | | Yellow, Straw | [facility] | | | | | | [facility] | | | | | | CENTER - | | | | | | LABORATORY | | + + + + + + | Clarity, | Clear | Clear | [facility] | | | Urine | | | [facility] | | | | | | [facility] | | | | | | C[facility] - | | | | | | LABORATORY | | + + + + + + | pH, Urine | 5.0 | 5.0 - 8.0 | [facility] | | | | | | [facility] | | | | | | [facility] | | | | | | C[facility] - | | | | | | LABORATORY | | + + + + + + | Specific | 1.011 | 1.001 - 1.030 | [facility] | | | [place], | | | [facility] | | | Urine | | | MEDICAL | | | | | | CENTER - | | | | | | LABORATORY | | + + + + + + | Protein, | Negative | Negative | [facility] | | | Urine | | | [facility] | | | | | | MEDICAL | | | | | | CENTER - | | | | | | LABORATORY | | + + + + + + | Blood, | Negative | Negative | [facility] | | | Urine | | | [facility] | | | | | | [facility] | | | | | | CENTER - | | | | | | LABORATORY | | + + + + + + | Glucose, | Negative | Negative | [facility] | | | Urine | | | [facility] | | | | | | [facility] | | | | | | CENTER - | | | | | | LABORATORY | | + + + + + + | Ketones, | Negative | Negative | [facility] | | | Urine | | | [facility] | | | | | | [facility] | | | | | | CENTER - | | | | | | LABORATORY | | + + + + + + | Bilirubin, | Negative | Negative | [facility] | | | Urine | | | [facility] | | | | | | [facility] | | | | | | CENTER - | | | | | | LABORATORY | | + + + + + + | Nitrite, | Negative | Negative | [facility] | | | Urine | | | [facility] | | | | | | [facility] | | | | | | CENTER - | | | | | | LABORATORY | | + + + + + + | Leukocyte | Negative | Negative | [facility] | | | Esterase, | | | [facility] | | | Urine | | | MEDICAL | | | | | | CENTER - | | | | | | LABORATORY | | + + + + + + | Urobilinoge | Negative | 0.2 mg/dL, 1.0 | [facility] | | | n, Urine | | mg/dL, Negative | [facility] | | | | | | [facility]ICAL | | | | | | CENTER - | | | | | | LABORATORY | | + + + + + + | White Blood | 0-2 | 0 - 2 /HPF | [facility] | | | Cells, | | | [facility] | | | Urine | | | MEDICAL | | | | | | CENTER - | | | | | | LABORATORY | | + + + + + + | Red Blood | 0-2 | 0 - 2 /HPF | [facility] | | | Cells, | | | [facility] | | | Urine | | | MEDICAL | | | | | | CENTER - | | | | | | LABORATORY | | + + + + + + | Squamous | 0-2 | 0 - 2 /LPF | [facility] | | | Epithelial | | | [facility] | | | Cells, | | | MEDICAL | | | Urine | | | CENTER - | | | | | | LABORATORY | | + + + + + + | Bacteria, | Negative | Negative /HPF | [facility] | | | Urine | | | [facility] | | | | | | MEDICAL | | | | | | CENTER - | | | | | | LABORATORY | | + + + + + + + + | Specimen | + + | Urine - Urine | | specimen obtained by | | clean catch | | procedure (specimen) | + + + + + + + | Performing | Address | City/State/Zipcode | Phone Number | | Organization | | | | + + + + + | [facility] | [address] | [place] | [phone] | | [facility] | | [address] | | | - LABORATORY | | | | + + + + + Lipase (03/17/2019 11:44 AM PDT) + +--------+ + + + | Component | Value | Ref Range | Performed | Pathologist | | | | | At | Signature | + +--------+ + + + | Lipase | 89 (H) | 12 - 53 U/L | [facility] | | | | | | [facility] | | | | | | [facility] | | | | | | CENTER - | | | | | | LABORATORY | | + +--------+ + + + + + | Specimen | + + | Blood | + + + + + + + | Performing | Address | City/State/Zipcode | Phone Number | | Organization | | | | + + + + + | [facility] | [address] | [place] | [phone] | | [facility] | | [address] | | | - LABORATORY | | | | + + + + + Comprehensive Metabolic Panel (03/17/2019 11:44 AM PDT) + + + + + + | Component | Value | Ref Range | Performed | Pathologist | | | | | At | Signature | + + + + + + | Na | 136 | 136 - 145 | [facility] | | | | | mmol/L | [facility] | | | | | | MEDICAL | | | | | | CENTER - | | | | | | LABORATORY | | + + + + + + | K | 4.8 | 3.4 - 5.1 | [facility] | | | | | mmol/L | [facility] | | | | | | MEDICAL | | | | | | CENTER - | | | | | | LABORATORY | | + + + + + + | Cl | 104 | 98 - 107 mmol/L | [facility] | | | | | | [facility] | | | | | | MEDICAL | | | | | | CENTER - | | | | | | LABORATORY | | + + + + + + | CO2 | 25 | 20 - 31 mmol/L | [facility] | | | | | | [facility] | | | | | | MEDICAL | | | | | | CENTER - | | | | | | LABORATORY | | + + + + + + | Anion Gap | 7 | 3 - 16 mmol/L | [facility] | | | | | | [facility] | | | | | | [facility] | | | | | | CENTER - | | | | | | LABORATORY | | + + + + + + | Glucose | 78 | 60 - 106 mg/dL | [facility] | | | | | | [facility] | | | | | | [facility]ICAL | | | | | | CENTER - | | | | | | LABORATORY | | + + + + + + | BUN | 9 | 9 - 23 mg/dL | [facility] | | | | | | [facility] | | | | | | [facility]ICAL | | | | | | CENTER - | | | | | | LABORATORY | | + + + + + + | Creatinine | 0.85 | 0.55 - 1.02 | [facility] | | | | | mg/dL | [facility] | | | | | | MEDICAL | | | | | | CENTER - | | | | | | LABORATORY | | + + + + + + | eGFR, | >60Comment: GLOMERULAR | >=60 | [facility] | | | non- | FILTRATION | mL/min/1.73m2 | [facility] | | | [place] | RATE,ESTIMATED | | MEDICAL | | | | mL/min/1.91b1Mhfe than | | CENTER - | | | | 60 Chronic kidney | | LABORATORY | | | | disease,if found over a | | | | | | 3-month period.Less than | | | | | | 15 Kidney failureFor | | | | | | | | | | | | Americans,multiply the | | | | | | calculated GFR by 1.21. | | | | | | | | | | + + + + + + | Calcium | 9.3 | 8.7 - 10.4 | [facility] | | | | | mg/dL | [facility] | | [facility] | | | MEDICAL | | | | | | CENTER - | | | | | | LABORATORY | | + + + + + + | Albumin | 4.5 | 3.2 - 4.8 g/dL | [facility] | | | | | | [facility] | | | | | | [facility]ICAL | | | | | | CENTER - | | | | | | LABORATORY | | + + + + + + | Bilirubin | 0.3 | 0.3 - 1.2 mg/dL | [facility] | | | Total | | | [facility] | | | | | | MEDICAL | | | | | | CENTER - | | | | | | LABORATORY | | + + + + + + | Total | 6.9 | 5.7 - 8.2 g/dL | [facility] | | | Protein | | | [facility] | | | | | | MEDICAL | | | | | | CENTER - | | | | | | LABORATORY | | + + + + + + | AST | 19 | 0 - 34 U/L | [facility] | | | | | | [facility] | | | | | | [facility] | | | | | | CENTER - | | | | | | LABORATORY | | + + + + + + | ALT | 17 | 10 - 49 U/L | [facility] | | | | | | [facility] | | | | | | [facility] | | | | | | CENTER - | | | | | | LABORATORY | | + + + + + + | Alkaline | 77 | 46 - 116 U/L | [facility] | | | Phosphatase | | | [facility] | | | | | | MEDICAL | | | | | | CENTER - | | | | | | LABORATORY | | + + + + + + | Globulin | 2.4 | 2.1 - 3.8 g/dL | [facility] | | | | | | [facility] | | | | | | [facility] | | | | | | CENTER - | | | | | | LABORATORY | | + + + + + + | Albumin/Adwoa | 1.9 | 0.8 - 1.9 | [facility] | | | bulin Ratio | | | [facility] | | | | | | MEDICAL | | | | | | CENTER - | | | | | | LABORATORY | | + + + + + + | BUN/Creatin | 10.6 | | [facility] | | | ine Ratio | | | [facility] | | | | | | [facility] | | | | | | CENTER - | | | | | | LABORATORY | | + + + + + + + + | Specimen | + + | Blood | + + + + + + + | Performing | Address | City/State/Zipcode | Phone Number | | Organization | | | | + + + + + | [facility] | [address] | [place] | [phone] | | [facility] | | [address] | | | - LABORATORY | | | | + + + + + CBC with Differential (03/17/2019 11:44 AM PDT) + + + + + + | Component | Value | Ref Range | Performed | Pathologist | | | | | At | Signature | + + + + + + | White Blood | 7.1 | 4.0 - 11.0 K/uL | [facility] | | | Cells | | | [facility] | | | | | | MEDICAL | | | | | | CENTER - | | | | | | LABORATORY | | + + + + + + | Red Blood | 4.42 | 3.70 - 5.20 | [facility] | | | Cells | | M/uL | [facility] | | | | | | MEDICAL | | | | | | CENTER - | | | | | | LABORATORY | | + + + + + + | Hemoglobin | 12.3 | 11.5 - 16.0 | [facility] | | | | | g/dL | [facility] | | | | | | MEDICAL | | | | | | CENTER - | | | | | | LABORATORY | | + + + + + + | Hematocrit | 39.8 | 34.0 - 47.0 % | [facility] | | | | | | [facility] | | | | | | MEDICAL | | | | | | CENTER - | | | | | | LABORATORY | | + + + + + + | MCV | 90.0 | 83.0 - 101.0 fL | [facility] | | | | | | [facility] | | | | | | [facility]ICAL | | | | | | CENTER - | | | | | | LABORATORY | | + + + + + + | MCH | 27.8 (L) | 28.0 - 35.0 pg | [facility] | | | | | | [facility] | | | | | | MEDICAL | | | | | | CENTER - | | | | | | LABORATORY | | + + + + + + | MCHC | 30.9 (L) | 32.0 - 36.0 | [facility] | | | | | g/dL | [facility] | | | | | | MEDICAL | | | | | | CENTER - | | | | | | LABORATORY | | + + + + + + | RDW-CV | 13.0 | <15.0 % | [facility] | | | | | | [facility] | | | | | | [facility]ICAL | | | | | | CENTER - | | | | | | LABORATORY | | + + + + + + | RDW-SD | 42.7 | 35.1 - 46.3 fL | [facility] | | | | | | [facility] | | | | | | [facility]ICAL | | | | | | CENTER - | | | | | | LABORATORY | | + + + + + + | Platelet | 374 | 140 - 440 K/uL | [facility] | | | Count | | | [facility] | | | | | | [facility]ICAL | | | | | | CENTER - | | | | | | LABORATORY | | + + + + + + | MPV | 9.7 | 6.5 - 12.4 fL | [facility] | | | | | | [facility] | | | | | | [facility] | | | | | | CENTER - | | | | | | LABORATORY | | + + + + + + | % | 64.6 | 45.0 - 82.0 % | [facility] | | | Neutrophils | | | [facility] | | | | | | MEDICAL | | | | | | CENTER - | | | | | | LABORATORY | | + + + + + + | % | 25.6 | 20.0 - 45.0 % | [facility] | | | Lymphocytes | | | [facility] | | | | | | MEDICAL | | | | | | CENTER - | | | | | | LABORATORY | | + + + + + + | % Monocytes | 5.8 | 4.0 - 12.0 % | [facility] | | | | | | [facility] | | | | | | MEDICAL | | | | | | CENTER - | | | | | | LABORATORY | | + + + + + + | % | 3.5 | 0.0 - 5.0 % | [facility] | | | Eosinophils | | | [facility] | | | | | | MEDICAL | | | | | | CENTER - | | | | | | LABORATORY | | + + + + + + | % Basophils | 0.4 | 0.0 - 1.0 % | [facility] | | | | | | [facility] | | | | | | MEDICAL | | | | | | CENTER - | | | | | | LABORATORY | | + + + + + + | % Immature | 0.1Comment: For | 0.0 - 0.4 % | [facility] | | | Granulocyte | patients, use the | | [facility] | | | s | special reference ranges | | MEDICAL | | | | listed below. | | CENTER - | | | | | | LABORATORY | | + + + + + + | Absolute | 4.57 | 1.80 - 8.50 | [facility] | | | Neutrophils | | K/uL | [facility] | | | | | | MEDICAL | | | | | | CENTER - | | | | | | LABORATORY | | + + + + + + | Absolute | 1.81 | 0.60 - 3.20 | [facility] | | | Lymphocytes | | K/uL | [facility] | | | | | | MEDICAL | | | | | | CENTER - | | | | | | LABORATORY | | + + + + + + | Absolute | 0.41 | 0.00 - 1.00 | [facility] | | | Monocytes | | K/uL | [facility] | | | | | | [facility] | | | | | | [facility] - | | | | | | LABORATORY | | + + + + + + | Absolute | 0.25 | 0.00 - 0.40 | [facility] | | | Eosinophils | | K/uL | [facility] | | | | | | [facility] | | | | | | CENTER - | | | | | | LABORATORY | | + + + + + + | Absolute | 0.03 | 0.00 - 0.10 | [facility] | | | Basophils | | K/uL | [facility] | | | | | | [facility] | | | | | | CENTER - | | | | | | LABORATORY | | + + + + + + | Absolute | 0.01Comment: For | 0.00 - 0.03 | [facility] | | | Immature | patients, use | K/uL | [facility] | | | Granulocyte | the special reference | | MEDICAL | | | s | ranges listed below. | | CENTER - | | | | | | LABORATORY | | + + + + + + | % nRBC | 0 | 0 - 2 per 100 | [facility] | | | | | WBCs | [facility] | | | | | | [facility] | | | | | | CENTER - | | | | | | LABORATORY | | + + + + + + | Absolute | 0.00 | 0.00 - 0.01 | [facility] | | | nRBC | | K/uL | [facility] | | | | | | [facility] | | | | | | CENTER - | | | | | | LABORATORY | | + + + + + + + + | Specimen | + + | Blood | + + + + + | Narrative | Performed At | + + + | IMMATURE GRANULOCYTES - For patients, use the following | [facility] | | reference ranges: Trim. Absolute (K/uL) Percentage (%) | [facility] | | 1st 0.003-0.091 K/uL 0.0-0.9% 2nd 0.007-0.247 K/uL | [facility] | | 0.1-2.0% 3rd 0.018-0.456 K/uL 0.1-2.0% | - LABORATORY | + + + + + + + + | Performing | Address | City/State/Zipcode | Phone Number | | Organization | | | | + + + + + | [facility] | [address] | [place], [place] | [phone] | | [facility] | | [address] | | | - LABORATORY | | | | + + + + + documented in this encounter Visit Diagnoses + + | Diagnosis | + + | Nausea - Primary Nausea alone | + + documented in this encounter Administered Medications + +--------+ +-------+------+------+ | Medication Order | MAR | Action | Dose | Rate | Site | | | Action | Date | | | | + +--------+ +-------+------+------+ | ketorolac (TORADOL) injection | Given | 03/17/20 | 15 mg | | | | 15 mg 15 mg, Intravenous, ONCE, | | 19 12:17 | | | | | Hemalatha 03/17/19 at 1210, For 1 dose | | PM PDT | | | | + +--------+ +-------+------+------+ +---+---+ | | | +---+---+ + +-------+ +------+---+---+ | ondansetron (ZOFRAN) injection | Given | 03/17/20 | 4 mg | | | | 4 mg 4 mg, Intravenous, ONCE, | | 19 11:36 | | | | | Hemalatha 03/17/19 at 1055, For 1 dose | | AM PDT | | | | + +-------+ +------+---+---+ +---+---+ | | | +---+---+ + +---------+ +---------+-------+---+ | promethazine (PHENERGAN) 12.5 | New Bag | 03/17/20 | 12.5 mg | 202 | | | mg in sodium chloride 0.9% 50 mL | | 19 1:51 | | mL/hr | | | IVPB 12.5 mg, Intravenous, | | PM PDT | | | | | Administer over 15 Minutes, ONCE, | | | | | | | Hemaltaha 03/17/19 at 1320, For 1 dose | | | | | | + +---------+ +---------+-------+---+ +---+---+ | | | +---+---+ + +---------+ +--------+-------+---+ | sodium chloride 0.9% (NS) bolus | New Bag | 03/17/20 | 1,000 | 2000 | | | 1,000 mL 1,000 mL, Intravenous, | | 19 11:43 | mLs | mL/hr | | | Administer over 30 Minutes, | | AM PDT | | | | | ONCE, [facility] 03/17/19 at 1140, For 1 | | | | | | | dose | | | | | | + +---------+ +--------+-------+---+ +---+---+ | | | +---+---+ documented in this encounter
--- OUTSIDE RECORDS SUMMARY | ~2020-08-31 | XMS | Clinical Summary ---
Demographics + + + | Address | [address] | | | [place] [address] | + + + | Home Phone | | + + + | Preferred Language | Unknown | + + + | Marital Status | Single | + + + | Judaism Affiliation | NON | + + + | Race | White | + + + | Ethnic Group | or | + + + Author + + + | Author | [facility] | + + + | Organization | [facility] | + + + | Address | Unknown | + + + | Phone | Unavailable | + + + Support + + +---------+ + | Name | Relationship | Address | Phone | + + +---------+ + | Sophie Ramirez | ECON | Unknown | | + + +---------+ + Care Team Providers + +------+ + | Care Fabric Coating Supervisor Name | Role | Phone | + +------+ + | No Pcp Per Patient | PCP | Unavailable | + +------+ + Source Comments [facility] is fully live on both [facility] and [facility] Allergies + + + + + + | Active Allergy | Reactions | Severity | Noted | Comments | | | | | Date | | + + + + + + | Codeine | Anaphylaxis | High | 08/30/20 | | | | | | 13 | | + + + + + + | Penicillin G | Anaphylaxis | High | 08/30/20 | | | | | | 13 | | + + + + + + Medications + + + +---------+------+------+-------+ | Medication | Sig | Dispensed | Refills | Star | End | Statu | | | | | | t | Date | s | | | | | | Date | | | + + + +---------+------+------+-------+ | acetaminophen 325 | Take 1-2 tablets by | | 0 | 10/0 | | Activ | | mg Oral tablet | mouth every four | | | 4/20 | | e | | | hours as needed. | | | 13 | | | + + + +---------+------+------+-------+ | loratadine 10 mg | Take 1 tablet by | 10 | 0 | 10/0 | | Activ | | Oral | mouth as needed | tablet | | 4/20 | | e | | tabletIndications: | (itching). | | | 13 | | | | urticaria | Indications: | | | | | | | | URTICARIA | | | | | | + + + +---------+------+------+-------+ | oxyCODONE, | Take 2-4 tablets by | 140 | 0 | 10/0 | | Activ | | immediate release, 5 | mouth every four | tablet | | 4/20 | | e | | mg Oral tablet | hours as needed for | | | 13 | | | | | severe pain. Lock | | | | | | | | pain medication | | | | | | | | away, keeping away | | | | | | | | from children. | | | | | | + + + +---------+------+------+-------+ | | Take 2 tablets by | 14 | 0 | 10/0 | | Activ | | trimethoprim-sulfame | mouth two times | tablet | | 03/19 | | e | | thoxazole (BACTRIM | daily. | | | 13 | | | | DS) 160-800 mg Oral | | | | | | | | tablet | | | | | | | + + + +---------+------+------+-------+ Active Problems + + + | Problem | Noted Date | + + + | UTI (lower urinary tract infection) | 09/01/2013 | + + + | Methamphetamine use | 09/01/2013 | + + + | Anemia | 09/01/2013 | + + + | Breast abscess | 08/31/2013 | + + + Family History + + +------+ + | Medical History | Relation | Name | Comments | + + +------+ + | Cancer | Father | | Prostate | + + +------+ + | Diabetes | Father | | | + + +------+ + | Diabetes | Maternal | | | | | Grandmoth | | | | | er | | | + + +------+ + + +------+--------+ + | Relation | Name | Status | Comments | + +------+--------+ + | Father | | | | + +------+--------+ + | Maternal Grandmother | | | | + +------+--------+ + Social History + + + +--------+ [...] on file | | + + + Last Filed Vital Signs + + + [...] | | + + + + + Plan of Treatment + + +-------+ + | Health Maintenance | Due Date | Last | Comments | | | | Done | | + + +-------+ + | Influenza (Flu) | | | | | vaccination (#1) | 0 | | | + + +-------+ + | Pneumococcal | Aged Out | | No longer eligible based on patient's age | | vaccination | | | to complete this topic | + + +-------+ + Results Not on filefrom Last 3 Months Additional Health Concerns + + + + + | Infection | Onset Date | Last Indicated | Resolved Time | + + + + + | 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
--- OUTSIDE RECORDS SUMMARY | ~2020-08-31 | XMS | Encounter Summary ---
Demographics + + + | Address | [address] | | | [place] [address] | + + + | Home Phone | | + + + | Preferred Language | Unknown | + + + | Marital Status | Single | + + + | Restorationism Affiliation | NON | + + + | Race | White | + + + | Ethnic Group | or | + + + Author + + + | Author | [facility] | + + + | Organization | [facility] | + + + | Address | Unknown | + + + | Phone | Unavailable | + + + Support + + +---------+ + | Name | Relationship | Address | Phone | + + +---------+ + | Sophie Ramirez | ECON | Unknown | | + + +---------+ + Care Team Providers + +------+ + | Care Jockey Agent Name | Role | Phone | + +------+ + PCP | Unavailable | + +------+ + [...] +--------+--------+ + + + + Encounter Details +--------+---------+ + + + | Date | Type | Department | Care Team | Description | +--------+---------+ + + + | 08/31/ | Surgery | [id number] | Brigitte Lantigua | INCISION & DRAINAGE | | 2012 | | [address] | MD Mandy [address] | LEFT BREAST | | | | Rd [facility] David | [address] | Microbiology x 2 | | | | Hospital Admitting | [place], [place] | | | | | Desk Located on the | [address] | | | | | 9 floor | [phone] | | | | | [place], [place] | | | | | | [address] | | | +--------+---------+ + + + Social History + + [...] might be different f rom the original. [facility] DEPARTMENT OF SURGERY EMERGENCY GENERAL SURGERY Division [...] is a 28 y/o female transferred from [facility] with co ncerns of left breast [...] mL. Outstanding labs/pathology/studies: Culture sensitivity pending at [facility] Medications: Current Discharge Medication List START taking [...] MD On 09/06/2013. (10:45 a.m.) Contact information [facility] [address] [place] [address] [phone] Destination: Destination: Home Condition on Discharge Good [...] 1-2 tablets by | | 0 | 09/02/20 | | | mg Oral tablet | mouth every four | | | 13 | | | | hours as needed. | | | | | + + + +---------+ + + | loratadine 10 mg | Take 1 tablet by | 10 | 0 | 20 | | | Oral | mouth as [...] tablets by | 14 | 0 | 10/04/20 | | | trimethoprim-sulfame | mouth two [...] Seymour, Marina - 09/02/2013 7:55 PM PDT [facility] Emergency General Surgery Inpatient Progress Note Hospital [...] -Ongoing wound care needs - Arranged by FLIGHT INFORMATION EXPEDITER and senior case manager - see discharge summary Acute pain: Transitioned to PO pain meds. UTI: Treated after 3 days antibiotics. H/o polysubstance abuse: No signs of acute withdrawal. Discharge Plan: D/C home today - see discharge summary. MARINA ANDERSEN MD EGS Retaining Room Cutter Pager: [phone] arina Andersen Md - 1 8:02 AM PDT [facility] DEPARTMENT OF SURGERY EMERGENCY GENERAL SURGERY Division [...] other applicable data points. Please refer to [place] for this information. PHYSICAL EXAM: LAST VITALS: [...] Andersen MD General Surgery Resident, PGY1 Pager [phone] [facility] [place] [address] [facility] [id number] signed by Marina Andersen Md at 09/01/2013 1:25 PM PDTdocum ented in this encounter H&P Notes Monica Lam MD - 08/30/2013 11:27 PM PDTI saw and evaluated the patient. I agree with the findings and the plan of care as documented in the resident s note. MONICA LAM MD [address] [place] [phone] Emelina Shahid M D - 08/30/2013 11:27 PM PDT GENERAL SURGERY HISTORY AND PHYSICAL NOTE: Admission Date: 08/30/2013 Admitting Attending: Genaro REASON FOR ADMISSION: Transferred from [facility] for L breast abscess. HPI: Two days [...] changes in bladder or bowel function. At [facility] hospital, she was febrile to 38.5, with [...] on file Social History Narrative Lives in [place] with ex boyfriend. FAMILY HISTORY: Family History [...] 38.5 as well as UTI. Transferred to [facility] from [facility] for further care. RECOMMENDATIONS: 1) Admit for IV antibiotics; vancomycin and levoquin 2) NPO after 1:30 for I&D in AM. 3) Pain control with acetaminophen, dilaudid, oxycodone The above findings and plan were discussed with Dr. Lam, who agrees. Pager [phone] [facility] Retaining Room Cutter Anesthesiology documented in this encounter Procedure Notes [...] Date: 08/31/2013 Attending Surgeon: Brigitte Lantigua MD Neuropathologist Surgeon: Alberta Patel MD & Marina Andersen [...] with anticipated transfer to the general surgery [place]. Sponge and needle counts were correct times two at end of case. Please note that Dr. Lantigua was present for all critical portions of this procedure. documented in thi s encounter Consult Notes Lewis, Duarte, PharmD - 08/31/2013 2:05 PM PDT Pharmacy [...] continue to follow. Please page clinical pharmacist (#[phone]) or call [facility] inpatient pharmacy ([phone]) with questions. Thank you, Kyle Che, Pharm.D. Pager# [phone] Subjective/Objective: Lacie Ramirez, a 28 year old female who presents with a L breast abscess, an elevat ed WBC and fever to 38.5 as well as UTI. Transferred to [facility] from [facility] (where she received 1 gram [...] Faculty Other at 09/06/2013 11:19 PM PDTScan - Other, Faculty - 11:19 PM PDT abiola Najera RN - [...] by Fabiola Alvarado RN at 12:46 PM PDTEvFabiola Jack RN - 09/02/2013 11:40 AM PDTReviewed dressin [...] for oxyco done. Arranging transport home via cab/[employer]. Pt has clothes here. Anticipate DC by 1 130. Nishi Alexis GLUE JOINTER OPERATOR Trauma Core Drill Operator Helper Pager [phone] andoff - Laney Garrido RN - 09/02/2013 [...] breast I&D, abd changed this am by , dressing change BID, pt needs dress ing [...] Patient Stability:Moderately Stable lan of Care - Lg he, Crys Bartholomew, [facility] - 09/01/2013 2:05 PM PDTProblem: Goals & Interventions Intervention: Substance Abuse Treatment Referral(s) Referral received from: EGS team Purpose of the Interview: Assess for A&D use and treatment referrals as well as assistance with Child Welfare involvement. Current Living Situation: The pt lives in [place]. She is vague about her support system. She has a friend who she believes can help her at home when she discharges. The pt has five children ages 13, 10, 8, 4 and 2 months. All of her children are in Child Protective Servic e placements. The pt has been in touch with her highway painter helper but does not want [facility] communicat ing with them. Financial/ Insurance status/ [...] children. The pt states she thinks [facility] made the assumption she was positive for [...] The pt will go back home to [place] and will likely need to do her own dressing changes. Case Management is looking into savanah dressing change s and follow-up. Recommendations/Plans/Referrals: The pt's Child Protective Tube Room Cashier, Celia called to speak with Damien. Damien explained [...] tomorrow and determine if she would like to release this inform ation to Celia. Crys Ledesma LCSW Trauma & EGS Locomotive Electrician Pager [phone] lan of Care - Fabiola Alvarado RN [...] If possible, please consider abx on the Tap2print or Happy Cloud $4 list: [email or web address]/default.aspx [email or web address] criptions Pt has asked RN about tx back to [facility] for treatment. This does not seem like a feasible goal in light of pt's lack of funding, and would not promote continuity of care. Will discuss with her. Following for CM needs. James [place] RN, BSN Core Drill Operator Helper - Trauma Program [facility] [address] [address] /[email or web address] - Ramya Garrido RN - 09/01/2013 12:55 [...] Radhika Dolan RN - 08/31/2013 11:02 AM PDTMeets Phase I Discharge Criteria (Stable For Transfer): [...] pain medication information: n/a Functional Epidural: N/A COMP FIELD CASE MANAGER: N/A Respiratory: RR: 16, O2 Sat: 100 [...] belongings in pacu lan of Care - Sd James roman - 08/31/2013 7:26 AM PDTProblem: Case Management Goals Goal: Discharge Needs Met Outcome: Goal not met Initial Case Management Note Reason for admission: Breast abscess. Tx from [place]. Pre-admission living situation: [place], [place] Pre-admission functional status: Independent. Family/support system: Ex-boyfriend per report. Also has 2-mo old in state custody. Insurance/funding in place: Unknown Anticipated case management needs: Unknown - will follow for CM needs. James [place] RN, BSN Core Drill Operator Helper - Trauma Program [facility] [place] [address] /[email or web address] Ankita Fischer - 08/30/2013 2:37 PM PDTGRP [phone] Paged.Electronically signed by Jagjit granados 08/30/2013 2:37 PM [facility] Jagjit Montez - 08/30/2013 2:20 PM [id number] Mu ltiple layers of abscess in breast. [...] + | [facility] | [address] | [place] [address] | | | SERVICES, PATRICE | NORTH [...] | + + + + + | [facility] | [address] | [place] [address] | | | SERVICES, CORE | NORTH [...] - | | | | | | COUN[place] | | + + + + + + | CULTURE | C Wound [employer]: | | LOU - | | | RESULT | Breast - left | | AIRPORT - | | | | Final | | [place] | | | | GRAM STAIN:No squamous [...] + | [facility] - AIRPORT - | [address] | [place] [address] | | | [facility] | | | | + + + [...] | | | | left | | [place] | | | | Final GRAM | [...] + | [place] - AIRPORT - | [address] | [place] [address] | | | COUNSELOR | | | | + + + [...] | | | | | CHRIS KELLER ([id number]) | | | | | | on 08/31/2013 6:19:42 PM | | | | + + + + + + + + | Specimen | + + | | + + + + + | Narrative | Performed At | + + + | Please click | [facility] | | on view image for the detailed interpretation from [employer] results. | CARDIOLOGY | + + + + + | Procedure Note | + + | Interface, Cardiology Results - 08/31/2013 6:19 PM PDT Please click on view image | | for the detailed interpretation from [employer] results. | + + + + + + + | Performing | Address | City/State/Zipcode | Phone Number | | Organization | | | | + + + + + | [facility] | [address] | [place], [place] | | | CARDIOLOGY | [address] | [address] | | + + + + + [...] on 06/17/13. | LABORATORY | | | SERVICESPATRICE | + + + + + + + + | Performing | Address | City/State/Zipcode | Phone Number | | Organization | | | | + + + + + | [facility] | [address] | [place] [address] | | | SERVICES, PATRICE | [address] | | | + [...] | | | LABORATORY | | | [place] | | | SERVICES, | | | [...] | + + + + + | [facility] | [address] | [place] [address] | | | SERVICES, CORE | [address] | | | + + + + + documented in this encounter Visit Diagnoses + + | Diagnosis | + + | Left breast abscess Inflammatory disease of breast | + + documented in this encounter Administered Medications + +--------+ +-------+------+--------+ | Medication Order | MAR | Action | Dose | Rate | Site | | | Action | Date | | | | + +--------+ +-------+------+--------+ | bupivacaine-EPINEPHrine | Given | 08/31/20 | 20 mL | | Left | | (MARCAINE-EPINEPHRINE) 0.25 | | 13 10:01 | | | Breast | | %-1:200,000 injection | | AM PDT | | | | | INTRAPROCEDURE PRN, Starting Wed | | | | | | | 08/31/13 at 1001, Until Wed | | | | | | | 08/31/13 at 1011 | | | | | | + +--------+ +-------+------+--------+ +---+---+ | | | +---+---+ documented in this encounter
--- OUTSIDE RECORDS SUMMARY | ~2020-08-31 | XMS | Clinical Summary ---
Demographics + + + | Address | [address] | | | [place] [address] | + + + | Home Phone | | + + + | Preferred Language | Unknown | + + + | Marital Status | Single | + + + | Voodoo Affiliation | Unknown | + + + | Race | White | + + + | Ethnic Group | Not or | + + + Author + + + | Author | [facility] | | | and [place] | + + + | Organization | [facility] | | | and [place] | [...] [place], | | | | | [place] [address] | | + + + + + Care Team Providers + +------+ + | Care Fabric And Textile Factory Worker Name | Role | Phone | + +------+ + | No, Physician | PCP | Unavailable | + +------+ + Allergies + + + + + + | Active Allergy | Reactions | Severity | Noted | Comments | | | | | Date | | + + + + + + | Codeine | Swelling | | 03/16/20 | | | | | | 19 | | + + + + + + | Penicillins | Swelling | | 03/16/20 | | | | | | 19 | | + + + + + + Medications + + + +---------+------+------+-------+ | Medication | Sig | Dispensed | Refills | Star | End | Statu | | | | | | t | Date | s | | | | | | Date | | | + + + +---------+------+------+-------+ | ondansetron | Take 1 tablet by | 12 | 0 | 04/1 | | Activ | | (ZOFRAN ODT) 4 mg | mouth every 8 hours | tablet | | 8/20 | | e | | disintegrating | as needed. | | | 19 | | | | tablet | | | | | | | + + + +---------+------+------+-------+ Active Problems Not on file Social History + +-------+ +--------+------+ | Tobacco [...] | | + + +-------+ + | Hepatitis C | | | | | Screening | 5 | | | + + +-------+ + | Vaccine: | | | | | Dtap/Tdap/Td (1 - | 4 | | | | Tdap) | | | | + + +-------+ + | Cervical Cancer | | | | | Screening (Pap) | 5 | | | + + +-------+ + | Vaccine: Influenza | | | | | (#1) | 0 | | | + + +-------+ + Results Not on filefrom Last 3 Months Insurance + +--------+ +--------+ +---------+--------+ | Payer | Benefi | Subscriber | Effect | Phone | Address | Type | | | t Plan | ID | michael | | | | | | / | | Dates | | | | | | Group | | | | | | + +--------+ +--------+ +---------+--------+ | [place] | MEDICA | [id number] | | [phone] | | Medica | | | [place] | | 019-Pr | 2 | | id | | | PLUS | | esent | | | | + +--------+ +--------+ +---------+--------+ + +--------+ +--------+ + + | Guarantor Name | Accoun | Relation to | Date | Phone | Billing Address | | | t Type | Patient | of | | | | | | | | | | + +--------+ +--------+ + + | Lacie Ramirez | Person | Self [birth year] | [address] | | Sophie | catia/Shiv | | 1985 | [phone] | [address] | | | flory | | | [address] (Home) | [place] [address] | + +--------+ +--------+ + + Advance Directives + + + + + | Type | Date Recorded | Patient | Explanation | | | | Chocolatier | | + + + + + | Power of | | | | | Lining Printer | | | | + + + + + | Advance | 03/16/2019 4:53 | | | | Directive | PM | | | + + + + +
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
--- OUTSIDE RECORDS SUMMARY | ~2020-08-31 | XMS | Encounter Summary ---
Demographics + + + | Address | [address] | | | [place] [address] | + + + | Home Phone | | + + + | Preferred Language | Unknown | + + + | Marital Status | Single | + + + | Jain Affiliation | NON | + + + | Race | White | + + + | Ethnic Group | or | + + + Author + + + | Author | [facility] | + + + | Organization | [facility] | + + + | Address | Unknown | + + + | Phone | Unavailable | + + + Support + + +---------+ + | Name | Relationship | Address | Phone | + + +---------+ + | Sophie Ramirez | ECON | Unknown | | + + +---------+ + Care Team Providers + +------+ + | Care Senior Integration Architect Name | Role | Phone | + +------+ + | No Pcp Per Patient | PCP | Unavailable | + +------+ + Reason for Visit + +--------+ + | Reason | Onset | Comments | | | Date | | + +--------+ + | Medication Refill | 09/07/ | | | | 2012 | | + +--------+ + Encounter Details +--------+ + + + + | Date | Type | Department | Care Team | Description | +--------+ + + + + | 09/07/ | Telephone | Tra[facility] Emergency | [facility] | Medication Refill | | 2012 | | General Surgery at | [facility] | | | | | [facility] [address] [place], [place] | | | | | [address] | [address] | | | | | [facility] [place], | | | | | | 2nd Floor | | | | | | [place], [place] | | | | | | [address] | | | | | | [phone] | | | +--------+ + + + [...] + + documented as of this encounter Miscellaneous Notes Telephone Encounter - Asiya Blas MD,PhD - 09/11/2013 4:01 PM PDTAttempte d to call patient to inform her that we only refill narcotics and vicodin at clinic visits. However, number listed ([phone]) was not valid. Asiya Gonsales MD Scallop Dredger, Anesthesiology Pager [phone] elep yeni Encounter - Melinda Gauthier - 09/07/2013 3:05 PM PDTPatient calling for refill of oxycod one. Patient lives in [place] and will not come for f/up appointment s/p I&D breast. Jaycee nt states she does not have a local MD or PCP that she sees. Patient informed that this is S ched II narcotic and cannot be called in or faxed to pharmacy. Please advise. If appropriate can Vicodin be called into listed pharmacy for her. Patient a lso notes that she is in a lot of pain and does not know if her would is 'infected' or not. [facility] [address] [place] [phone] documented in this encounte r Plan of Treatment Not on filedocumented as [...]
--- OUTSIDE RECORDS SUMMARY | ~2020-08-31 | XMS | Encounter Summary ---
Demographics + + + | Address | [address] | | | [place] [address] | + + + | Home Phone | | + + + | Preferred Language | Unknown | + + + | Marital Status | Single | + + + | Pentecostalism Affiliation | Unknown | + + + | Race | White | + + + | Ethnic Group | Not or | + + + Author + + + | Author | [facility] | | | and [place] | + + + | Organization | [facility] | | | and [place] [...] [place], | | | | | [place] [address] | | + + + + + Care Team Providers + +------+ + | Care Ball Mill Mixer Name | Role | Phone | + +------+ + | No, Physician | PCP | Unavailable | + +------+ + Reason for Visit +--------+ + | Reason | Comments | +--------+ + | Nausea | | +--------+ + Encounter Details +--------+ + + + + | Date | Type | Department | Care Team | Description | +--------+ + + + + | 03/16/ | Emergency | [facility] | Dequan Eller, | Vomiting, | | 2019 | | [facility] | MD [address] | persistent, in adult | | | | CENTER [address] | [place], [place] | (Primary Dx) | | | | [place], [place] | [address] | | | | | [address] | | | | | | [phone] | | | +--------+ + + + [...] + + + | Blood Pressure | 107/65 | 03/16/2019 4:33 PM | | | | | PDT | | + + + + + | Pulse | 69 | 03/16/2019 4:33 PM | | | | | PDT | | + + + + + | Temperature | 2.5 C (36.5 F) | 03/16/2019 4:33 PM | | | | | PDT | | + + + + + | Respiratory Rate | 12 | 03/16/2019 4:33 PM | | | | | PDT | | + + + + + | Oxygen Saturation | 99% | 03/16/2019 4:33 PM | | | | | PDT | | + + + + + | Inhaled Oxygen | - | - | | | Concentration | | | | + + + + + | Weight | 68 kg (150 lb) | 03/16/2019 4:33 PM | | | | | PDT | | + + + + + | Height | 162.6 cm (5' 4") | 03/16/2019 4:33 PM | | | | | PDT | | + + + + + | Body Mass Index | 25.75 | 03/16/2019 4:33 PM | | | | | PDT | | + + + + + documented in this encounter Discharge Instructions AttachmentsThe following attachments cannot be sent through Care Everywhere.Vomiting (Adult ) (Israeli)documented in this encounter ED Notes Dequan Eller MD - 03/16/2019 4:29 PM PDTFormatting of this note might be different fr om the original. Chief Complaint: "I can't stop vomiting" HPI: This patient presents to the Emergency Department with nausea and vomiting that occurs intermittently for the past week. Patient has been having severe nausea and fatigue. No f sourav but she gets body aches. NO skin rash and no changes to her health otherwise. Past Medical and Surgical History Past Medical History: Diagnosis Date Emphysema of lung (HCC) Hypertension History reviewed. No pertinent surgical history. Medications No current outpatient medications on file as of 03/16/2019. Allergies Allergies Allergen Reactions Codeine Swelling Penicillins Swelling Family and Social History History reviewed. No pertinent family history. Social History Socioeconomic History Marital status: Single Spouse name: Not on file Number of children: Not on file Years of education: Not on file Highest education level: Not on file Tobacco Use Smoking status: Never Smoker Smokeless tobacco: Never Used Substance and Sexual Activity Alcohol use: Never Frequency: Never Drug use: Never Review of Systems Review of Systems Constitutional: Negative for chills and fever. Gastrointestinal: Positive for nausea and vomiting. As in history of present illness. A 10 system review was otherwise negative. Physical Examination VITAL SIGNS: (first vital signs):Temp: 36.9 C (98.5 F) Pulse: 75 Resp: 16 SpO2: 99 % BP : 110/70 Body mass index is 25.75 kg/m. Constitutional: female patient, pleasant, alert and appropriate, conversant with nurse and staff. HEENT: Atraumatic, patient follows me around the room with their eyes, PERRL, Oropharynx s hows no redness, moist mucus membranes. Respiratory: Good air movement bilaterally. No wheezes, no rales. Patient's work of breat juan is normal. Cardiovascular: Normal S1 S2. No rubs or murmurs Abdomen: Soft, nontender. No rebound, guarding, or masses. Bowel tones normal. No pulsa tile masses Skin: Warm, Dry, No obvious rashes. Capillary refill is brisk <3 seconds and shows good p erfusion on areas of visible skin. Neurologic: Alert & oriented. Cranial nerves II-XII intact. No focal deficits. Gait is n ormal. Speech is normal. Psychiatric: Normal mood, affect and judgement. No evidence of suicidal or homicidal idea tion at this time. Labs No results found for this or any previous visit. Imaging Recent imaging: No results found for this or any previous visit (from the past 360 hour(s)). Medical Decision Making Pertinent Labs & Imaging studies were reviewed along with EMS notes and penitentiary record s if applicable. Medication and allergy lists reviewed in [facility]. Nursing notes and old glenda rds were reviewed if available within [facility]. ER course: 16:29 - Patient care initiated. After introducing myself to the patient, I performed a car eful history and physical examination. Patient with nausea and vomiting. The ddx is broad and includes state, dehydratio n, renal failure, hepatitis, cholelithiasis, etc. We discussed giving IV fluids and labs an d then re-evaluate 17:02. At this point, the patient is doing very well but unfortunately eloped. She did no t stay for any discussion Last Set of Vital Signs: Temp: (!) 2.5 C (36.5 F) Pulse: 69 Resp: 12 SpO2: 99 % BP: 107 /65 Impression 1. Vomiting, persistent, in adult Disposition: Eloped Condition: Stable Follow-up Information [facility]. Specialty: Emergency Medicine Why: If symptoms worsen Contact information: [address] [place] [address] There are no discharge medications for this patient. There are no discharge medications for this patient. Discharge References/Attachments Vomiting (Adult) (Israeli) A voice recognition software has been used to create this chart. Occasional wrong-word or sound-alike substitutions may have occurred due to the inherent limitations of voice r ecognition software. Please read the chart carefully and recognize, using context, where the se substitutions have occurred. Dequan Eller MD 03/16/19 1703 Dequan Eller MD 03/16/192056 Meseret Desouza RN - 03/16/2019 4:17 PM PDTPt reports decreased urination and nausea x 1 week. She stat es "I can't eat, I can't keep anything down". Emesis x 2 today. Last urination was this mo rning and very little. No fevers or diarrhea. She states "My whole entire inside of my bod y aches really bad". documented in this encounter Plan of Treatment Not on filedocumented as of this encounter Visit Diagnoses + + | Diagnosis | + + | Vomiting, persistent, in adult - Primary Persistent vomiting | + + documented in this encounter Administered Medications + +--------+---------+------+------+------+ | Medication Order | MAR | Action | Dose | Rate | Site | | | Action | Date | | | | + +--------+---------+------+------+------+ + +---+ | ondansetron (ZOFRAN) injection | | | 4 mg 4 mg, Intravenous, EVERY 1 | | | HOUR PRN, Nausea, Starting Wed | | | 03/16/19 at 1639, For 2 doses | | + +---+ | | | + +---+ documented in this encounter
--- OUTSIDE RECORDS SUMMARY | 2020-08-31 16:52 | XMS ---
PreManage Notification: TYREE STROUD Security Taproom Attendant Events No recent Security Events currently on file CRITERIA MET - [facility] - 2 Visits in 30 Days CARE PROVIDERS There are no care providers on record at this time. [place] has no Care Guidelines for this patient. Arben VISIT COUNT (12 MO.) [address] [facility] NOTE: Visits indicate total known visits. ED/C VISIT TRACKING (12 MO.) [facility]2020 [facility] [place] [facility] COMPLAINT: - MULTIPLE COMPLAINTS 08/29/2020 21:35 [facility] [place] TYPE: Emergency DIAGNOSES: - MENTAL HEALTH 02/16/2020 21:03 [facility] [place] TYPE: Emergency COMPLAINT: - COUGH DIAGNOSES: - Cough - Acute upper respiratory infection, unspecified - Allergy status to penicillin - Allergy status to narcotic agent status INPATIENT VISIT TRACKING (12 MO.) No inpatient visits to display in this time frame [email or web address]
[2020-08-31] MEDS ORDERED: CYMBALTA20 MG PO (17:02)
[2020-08-31] MEDS ORDERED: VISTARIL25 MG PO (17:04)
[2020-08-31] MEDS ORDERED: VISTARIL50 MG PO (17:04)
[2020-08-31] MEDS ORDERED: ATIVAN0.5 MG PO (17:05)
[2020-08-31] MEDS ORDERED: MULTI VITAMIN1 EACH PO (17:06)
[2020-08-31] MEDS ORDERED: ZYPREXA5 MG PO ×2 (17:07→17:08)
[2020-08-31] MEDS ORDERED: LUBRICANT EYE D10 M1 OP (17:10)
[2020-08-31] MEDS ORDERED: MACROBID 100 M100 MG PO (22:19)
[2020-08-31] MEDS ORDERED: PYRIDIUM200 MG PO (22:19)
== END 2020-08-31 22:38 | disposition home or self-care (01) ==
LOC: ED 16:49
DX: F15.90 Other stimulant use, unspecified, uncomplicated (principal); E86.0 Dehydration; Z88.0 Allergy status to penicillin; Z88.5 Allergy status to narcotic agent; Z79.899 Other long term (current) drug therapy
CPT/HCPCS: 80053; 81001; 84703; 85025; 87077; 87088; 87186; 96360; 96361; 99284-25; J7030

== ENCOUNTER 2020-10-24 00:43 | Emergency (ER) | payer SELFPAY ==
[~2020-10-24] VITALS: Ht 162.6 cm; Wt 57.1 kg
[~2020-10-24 00:43] MED LIST changes: +ATIVAN0.5 MG PO; +CYMBALTA20 MG PO; +LUBRICANT EYE D10 M1 OP; +MACROBID 100 M100 MG PO; +MULTI VITAMIN1 EACH PO; +PYRIDIUM200 MG PO; +VISTARIL25 MG PO; +VISTARIL50 MG PO; +ZYPREXA5 MG PO
== END 2020-10-24 03:17 | disposition home or self-care (01) ==
LOC: ED 00:43
DX: S90.425A Blister (nonthermal), left lesser toe(s), initial encounter (principal); S90.424A Blister (nonthermal), right lesser toe(s), initial encounter; F15.10 Other stimulant abuse, uncomplicated; X58.XXXA Exposure to other specified factors, initial encounter; I10 Essential (primary) hypertension; Z88.0 Allergy status to penicillin; Z88.5 Allergy status to narcotic agent
CPT/HCPCS: 51701; 80053; 81001; 84703; 85025; 99283-25; G0480